=== PATIENT | female | born 1955 | race Caucasian/White ===

== ENCOUNTER 2020-02-17 07:36 | Day surgery (SDC) | payer OTHER ==
[2020-02-16 15:04] LABS: Absolute Lymphocytes (CBC) 1.8 K/uL (0.7-4.9); Basophils % 0.4 % (0-1.3); Hematocrit 30.4 % (36.0-45.0); Lymphocytes % 25.8 % (15.3-44.8); RBC Red Blood Cell Count 3.61 M/uL (3.86-4.86)
--- OUTSIDE RECORDS SUMMARY | 2020-02-17 07:40 | XMS REPORT ---
:1955 [facility] Matthew Marquez. [address] [place] [address] Care Team Providers Name Role Phone DR WERO HERNANDEZ Unavailable Unavailable Problems This patient has no known problems. Allergies, Adverse Reactions, Alerts This patient has no known allergies or adverse reactions. Medications This patient has no known medications. Encounters Start End Encounter Admission Attending Care Care Encounter Date/Time Date/Time Type Type Clinicians Facility Department ID 2020-01-17 Inpatient KUSUM MONTES RAD [id number] 08:15:00 WERO 2020-01-11 2020-02-11 Outpatient KUSUM MONTES LAB [id number] 10:56:00 23:59:00 [facility] Results Test Description Test Time Test Comments Text Results Atomic Results Result Comments VITAMIN D TOTAL 25 (OH) 2020-01-12 17:44:00 Test Item Value Reference Range Comments VITAMIN D 25(OH) (test code=VD) 13.2 ng/mL 30.0-100.0 [id number] 16:38:00 Test Item Value Reference Range Comments HIV-1,2 and p24 (test code=CHIV) NON-REACTIVE NON-REACTIVE HEPATITIS C [id number] 16:34:00 Test Item Value Reference Range Comments HCAB (test code=HCAB) NON-REACTIVE NON-REACTIVE HEPATITIS B SURFACE [id number] 16:05:00 Test Item Value Reference Range Comments HBSAG (test code=HBSAG) NON-REACTIVE NON-REACTIVE HEPATITIS A IGM [id number] 07:13:00 Test Item Value Reference Range Comments HEPATITIS A IGM (test NON-REACTIVE NON-REACTIVE For additional information, vquz=[id number]) please refer tohttp://education.[employer]/faq/UJP180(This link is being provided for informational/educational purposes only.)TEST PERFORMED AT:[employer] [id number] [place] [address]SPUCHQNOLVIA IRBY MD HEPATITIS B CORE IgM [id number] 07:12:00 Test Item Value Reference Range Comments HEPATITIS B CORE ANTIBODY NON-REACTIVE NON-REACTIVE TEST PERFORMED AT:[employer] (IGM) (test [id number]) DIAGNOSTICS [id number] [place] [address]UGPMIRNOLVIA IRBY MD COMPREHENSIVE METABOLIC [id number] 12:32:00 Test Item Value Reference Range Comments GLUCOSE (test code=06D) 55 mg/dL 75-100 SODIUM (test code=01A) 140 mmol/L 136-145 POTASSIUM (test code=01B) 4.2 mmol/L 3.6-5.1 CHLORIDE (test code=04A) 109 mmol/L 98-107 CO2 (test code=02A) 26 mmol/L 22-32 ANION GAP (test code=ANG) 9.2 mmol/L BUN (test code=05D) 10 mg/dL 7-18 CREATININE (test code=03E) 1.0 mg/dL 0.4-1.1 BUN/CREA (test code=BCR) 10 12-20 CALCIUM (test code=09D) 9.5 mg/dL 8.3-9.5 BILI TOTAL (test code=11A) 0.3 mg/dL 0.2-1.0 PROTEIN (test code=07D) 7.9 g/dL 6.4-8.2 ALBUMIN (test code=08D) 3.4 g/dL 3.5-4.8 GLOBULIN (test code=GLB) 4.5 g/dL 1.5-3.8 ALB/GLOB (test code=AGRR) 0.8 1.0-2.6 ALK PHOS (test code=35A) 66 IU/L 42-121 AST (test code=30A) 19 IU/L <=42 ALT (test code=31A) 15 IU/L <=78 CARCINOEMBRYONIC [id number] 12:06:00 Test Item Value Reference Range Comments CEA (test code=CEA) 16.7 ng/mL 0.0-3.0 CBC (INCLUDES AUTOMATED DIFFERENTIAL)2020-01-11 11:35:00 Test Item Value Reference Range Comments WBC (test code=WBC) 9.3 10\S\3/uL 4.5-11.0 RBC (test code=RBC) 4.03 10\S\6/uL 4.20-5.60 HGB (test code=HBG) 11.0 g/dL 12.0-15.5 HCT (test code=HCT) 35.1 % 35.0-44.0 MCV (test code=MCV) 87.1 fL 81.0-99.0 MCH (test code=MCH) 27.3 pg 27.0-31.0 MCHC (test code=MCHC) 31.3 g/dL 32.0-36.0 RDW (test code=RDW) 14.4 % 11.5-14.5 PLT (test code=PLT) 230 10\S\3/uL 130-400 MPV (test code=MPV) 10.4 fL 9.4-12.4 NEUTROP # (test code=NE#) 6.0 10\S\3/uL 1.6-8.0 LYMPH # (test code=LY#) 2.6 10\S\3/uL 1.1-3.5 MONOCYTE # (test code=MO#) 0.7 10\S\3/uL 0.0-1.1 EOSINOPH # (test code=EO#) 0.0 10\S\3/uL 0.0-0.7 BASOPHIL # (test code=BA#) 0.0 10\S\3/uL 0.0-0.3 IG # (test code=IG#) 0.04 10\S\3/uL 0.00-0.06 NRBC # (test code=NRBC#) 0.00 10\S\3/uL 0.00-0.01 NEUTROPH % (test code=NE%) 64.3 % 35.0-73.0 LYMPH % (test code=LY%) 28.1 % 20.0-55.0 MONO % (test code=MO%) 7.0 % 2.5-10.0 EOSINOPH % (test code=EO%) 0.0 % 0.0-5.0 BASOPHIL % (test code=BA%) 0.2 % 0.0-2.0 IG % (test code=IG%) 0.4 % 0.0-0.8 NRBC% (test code=NRBC%) 0.0 % 0.0-0.2 MANDIFF (test code=MDIFF) NO NO RBC MORPH (test code=RBCMOR) NORMAL
[2020-02-17] MEDS ORDERED: NS 0.9% VIAL 20 ML ONE (08:14)
[2020-02-17] MEDS ORDERED: LIDOCAINE 1% MPF 30 ML VIAL ONE (08:14)
[2020-02-17] MEDS ORDERED: HEPARIN 5000 UNIT/ML 1 ML VIAL ONE (08:14)
[2020-02-17] MEDS ORDERED: NA CHLORIDE 0.9% 1,000 ML ONE (08:40)
[2020-02-17] MEDS ORDERED: CEFAZOLIN/SWI 1gm 1 GM/10 ML SYR ONE (08:40)
[2020-02-17] MEDS ORDERED: propofoL 200 MG/20 ML VIAL IV ONE (08:56)
[2020-02-17] MEDS ORDERED: MIDAZOLAM HCL 2 MG/2 ML INJ ONE (08:56)
[2020-02-17] MEDS ORDERED: FENTANYL CITR 100 MCG/2 ML ONE (08:56)
--- NOTE | 2020-02-17 10:19 | RAD REPORT ---
EXAM DESCRIPTION: RAD - Chest Single View - 02/17/2020 10:09 am CLINICAL HISTORY: s/p port a cath Chest pain. COMPARISON: No comparisons FINDINGS: Portable technique limits examination quality. The lungs are grossly clear. The heart is normal in size. Right-sided venous catheter has its tip in the SVC. No pneumothorax. IMPRESSION: No postprocedure pneumothorax.
[2020-02-17] MEDS ORDERED: HYDROCODONE/APAP 7.5/325 MG TAB ONE (10:42)
--- NOTE | 2020-02-17 12:16 | RAD REPORT ---
EXAM DESCRIPTION: RAD - Fluoroscopy <1 Hour - 02/17/2020 12:09 pm CLINICAL HISTORY: Venous catheter insertion. PORT A CATH COMPARISON: No comparisons FINDINGS: Fluoroscopic imaging is submitted from placement of a venous catheter. Details of the pro cedure not available. Fluoroscopy time: 0.3 minutes
[2020-02-17 12:50] VITALS: BP 93/45; TEMP 96.8; O2SAT 100
--- NOTE | 2020-02-17 14:31 | OP ---
Date of Procedure: 02/17/2020 Surgeon: Jourdan Mercado MD Preoperative Diagnosis: Anal carcinoma. Postoperative Diagnosis: Anal carcinoma. Procedure: Placement of right internal jugular Port-A-Cath and interpretation of intraoperative fluo roscopy. Estimated Blood Loss: Minimal. Specimen: None. Findings: Normal anatomy. Anesthesia: MAC. Complications: None. Disposition: Patient tolerated the procedure in stable condition, taken to Recovery in good general condition. Procedure In Detail: Patient was brought to the OR, placed in supine position. MAC anesthesia was b egun. The patient was prepped and draped in usual sterile fashion. Lidocaine 1% infiltrated locally . An 18-gauge needle was used to access the right IJ vein. Guidewire was passed. Position was conf irmed with fluoroscopy. A 3 cm incision made on the right anterior chest. Pocket was created. Tunn Improveit! 360 device was used to tunnel the catheter between the 2 wounds. Bleeding controlled with cautery and then catheter tip placed under fluoroscopy at the SVC right atrial junction and cut to appropriat e size, attached to the Port-A-Cath device. Port-A-Cath device attached to subcu tissue with 3-0 Victoriano ryl. Port-A-Cath device flushed with heparin and packed with heparin with good blood flow and then 3 -0 chromic used to reapproximate subcutaneous tissue and close the skin. Sterile dressing applied. Patient was awakened and taken to Recovery in good general condition. Chest x-ray has been ordered. If okay, the patient will be discharged to home. Disposition: Home. Condition: Stable. Discharge Instructions: Resume home medications and diet. Activity as tolerated. No heavy lifting. Remove outer dressing in 2 days. Shower. Keep wound clean and dry. Follow up in my office in 2 w [facility], call for appointment. [facility] and then Tylenol No. 3 one tablet p.o. q.4 p.r.n. pain. /MODL Voice ID: [id number] Report ID: [id number]
== END 2020-02-17 11:30 | disposition home or self-care (01) ==
LOC: OR 07:36
PROVIDERS: ATTEND Surgery
PROC: 0JH60WZ Insertion of Totally Implantable Vascular Access Device into Chest Subcutaneous Tissue and Fascia, Open Approach (ICD-10-PCS; principal; 2020-02-17 09:00)
DX: C21.0 Malignant neoplasm of anus, unspecified (principal); E11.9 Type 2 diabetes mellitus without complications; Z87.891 Personal history of nicotine dependence; Z80.3 Family history of malignant neoplasm of breast; Z83.3 Family history of diabetes mellitus
CPT/HCPCS: 85025; 36415; 82947 ×2; 71045; 36561; J2704; J1644 ×2; J2250; J3010; J0690; J7030; C1788; 76000

== ENCOUNTER → 2020-04-10 | Day surgery (SDC) | payer OTHER ==
[~2020-04-10] MED LIST: NA CHLORIDE 0.9% 250 ML ONE
--- OUTSIDE RECORDS SUMMARY | 2020-04-10 14:45 | XMS REPORT | Continuity of Care Document ---
:1955 Author Organization [facility] Care Team Providers Name Role Phone MD Lupe, Laury Unavailable Unavailable Insurance Providers Payer name Policy type / Policy ID Covered democrat ID Policy Hol brigid Coverage type *SELF PAY* *SELF PAY* UHC - MEDICARE SOLUTIONS - MEDICARE DIRECT A *SELF PAY* UHC - MEDICARE SOLUTIONS - MEDICARE DIRECT A *SELF PAY* *SELF PAY* [place]AL[place] MEDICARE [place] *SELF PAY* *SELF PAY* *SELF PAY* *SELF PAY* *SELF PAY* *SELF PAY* *SELF PAY* *SELF PAY* *SELF PAY* *SELF PAY* *SELF PAY* *SELF PAY* *SELF PAY* *SELF PAY* *SELF PAY* *SELF PAY* *SELF PAY* *SELF PAY* *SELF PAY* *SELF PAY* *SELF PAY* *SELF PAY* *SELF PAY* *SELF PAY* *SELF PAY* *SELF PAY* *SELF PAY* *SELF PAY* *SELF PAY* *SELF PAY* *SELF PAY* *SELF PAY* *SELF PAY* *SELF PAY* *SELF PAY* *SELF PAY* *SELF PAY* *SELF PAY* *SELF PAY* Encounters Encounter Performer Location Date Lab Report Laury Andrade MD [facility] Aug 28, 2014 Internal Medicine Problems Problem Effective Dates Problem Status DIABETES MELLITUS, TYPE II, WITH NEUROLOGICAL Active COMPLICATIONS HYPERCHOLESTEROLEMIA Active SHORTNESS OF BREATH Aug 30, 2013 Inactive EDEMA Aug 30, 2013 Active URINARY TRACT INFECTION Sep 02, 2013 Inactive ACUTE SINUSITIS, UNSPECIFIED Sep 02, 2013 Inactive ECZEMA, ATOPIC Sep 27, 2013 Inactive NEED PROPHYLACTIC VACCINATION&INOCULATION FLU Sep 27, 2013 Inactive SCABIES Jan 18, 2014 Inactive ELEVATED BLOOD PRESSURE Mar 27, 2014 Active PERIPHERAL NEUROPATHY Mar 27, 2014 Active FOOT PAIN April 20, 2014 Inactive DIARRHEA April 20, 2014 Inactive METATARSALGIA May 05, 2014 Active PLANTAR FASCIITIS May 19, 2014 Active ACHILLES BURSITIS OR TENDINITIS May 19, 2014 Active DRY SKIN Aug 28, 2014 Active OVERACTIVE BLADDER Aug 28, 2014 Active Procedures Date Description Comments Aug 30, 2013 smoking status former smoker Apr 30, 2012 colonoscopy Normal Apr 30, 2012 mammogram Normal Bilateral Dec 26, 2013 diabetic foot check yes May 05, 2014 diabetic foot check Exam Performed Today May 19, 2014 smoking status Former smoker Jun 08, 2014 mammogram Normal Aug 28, 2014 smoking status Former smoker Medications Medication Instructions Start Date Status METFORMIN HCL 1000 MG TABS 1 po BID Aug 30, 2013 Activ e SIMVASTATIN 40 MG TABS 1 po daily Aug 30, 2013 Active HYDROCODONE-ACETAMINOPHEN 5-325 1 po BID PRN pain Aug 30, 2013 Active MG TABS GLIPIZIDE 10 MG TABS 1 po TID Aug 30, 2013 Active METOLAZONE 2.5 MG TABS take one pill 30 minutes prior Aug 30 13 Inactive to Lasix twice a day LEVAQUIN 500 MG TABS one po daily Sep 02, 2013 Inactive FUROSEMIDE 40 MG TABS one po daily PRN Dec 26, 2013 Active KLOR-CON 10 TAB 10MEQ ER one po daily As needed with Dec 26 4 Active Lasix METOLAZONE 2.5 MG TABS 1 po BID 30 minutes prior to Oct 24, 2013 Inactive furosemide TRAMADOL HCL 50 MG TABS 1 po BID PRN Pain Dec 26, 2013 Active PERMETHRIN 5 % CREA Apply cream from head to toe; Jan 18, 2014 Inactive leave on for 8-14 hours before washing off with water; reapply in 1 week LYRICA 75 MG CAPS one po twice daily Mar 27, 2014 Active TRIAMCINOLONE ACETONIDE 0.1 % use BID to affected area Dec 26 014 Inactive CREA VESICARE 5 MG TABS 1 tablet daily Aug 28, 2014 Active TRIAMCINOLONE ACETONIDE 0.1 % Apply to affected areas twice a Se 2013 Active CREA day Immunizations Vaccine Date Status pneumococcal immunization administered Sep 27, 2013 c ompleted influenza immunization (Flu Vax) has been administered Aug 312012 completed influenza immunization (Flu Vax) has been administered Aug 012013 completed Vital Signs Date Description Test Result Aug 30, 2013 height E&M - 8302-2 HEIGHT 65.25 in Aug 30, 2013 weight E&M - 3141-9 WEIGHT 301 lb Aug 30, 2013 temperature E&M TEMPERATURE 98.4 deg f Aug 30, 2013 pulse rate E&M - 8867-4 PULSE RATE 80 /min Aug 30, 2013 blood pressure, systolic - 8480-6 BP SYSTOLIC 130 mm Hg Aug 30, 2013 blood pressure, diastolic - 8462-4 BP DIASTOLIC 88 mm Hg Sep 02, 2013 weight E&M - 3141-9 WEIGHT 287 lb Sep 02, 2013 temperature E&M TEMPERATURE 98.2 deg f Sep 02, 2013 pulse rate E&M - 8867-4 PULSE RATE 96 /min Sep 02, 2013 blood pressure, systolic - 8480-6 BP SYSTOLIC 124 mm Hg Sep 02, 2013 blood pressure, diastolic - 8462-4 BP DIASTOLIC 84 mm Hg Sep 27, 2013 weight E&M - 3141-9 WEIGHT 296 lb Sep 27, 2013 blood pressure, systolic - 8480-6 BP SYSTOLIC 120 mm Hg Sep 27, 2013 blood pressure, diastolic - 8462-4 BP DIASTOLIC 80 mm Hg Sep 27, 2013 pulse rate E&M - 8867-4 PULSE RATE 80 /min Sep 27, 2013 temperature E&M TEMPERATURE 98.0 deg f Dec 26, 2013 weight E&M - 3141-9 WEIGHT 278 lb Dec 26, 2013 blood pressure, systolic - 8480-6 BP SYSTOLIC 140 mm Hg Dec 26, 2013 blood pressure, diastolic - 8462-4 BP DIASTOLIC 94 mm Hg Dec 26, 2013 temperature E&M TEMPERATURE 98.1 deg f Dec 26, 2013 pulse rate E&M - 8867-4 PULSE RATE 84 /min Jan 18, 2014 weight E&M - 3141-9 WEIGHT 275 lb Jan 18, 2014 blood pressure, systolic - 8480-6 BP SYSTOLIC 160 mm Hg Jan 18, 2014 blood pressure, diastolic - 8462-4 BP DIASTOLIC 92 mm Hg Jan 18, 2014 temperature E&M TEMPERATURE 97.9 deg f Jan 18, 2014 pulse rate E&M - 8867-4 PULSE RATE 76 /min Mar 27, 2014 weight E&M - 3141-9 WEIGHT 273 lb Mar 27, 2014 blood pressure, systolic - 8480-6 BP SYSTOLIC 140 mm Hg Mar 27, 2014 blood pressure, diastolic - 8462-4 BP DIASTOLIC 88 mm Hg Mar 27, 2014 temperature E&M TEMPERATURE 97.5 deg f Mar 27, 2014 pulse rate E&M - 8867-4 PULSE RATE 68 /min April 20, 2014 weight E&M - 3141-9 WEIGHT 274.4 lb April 20, 2014 temperature E&M TEMPERATURE 97.7 deg f April 20, 2014 pulse rate E&M - 8867-4 PULSE RATE 72 /min April 20, 2014 blood pressure, systolic - 8480-6 BP SYSTOLIC 128 mm Hg April 20, 2014 blood pressure, diastolic - 8462-4 BP DIASTOLIC 80 mm Hg May 05, 2014 temperature E&M TEMPERATURE 97.8 deg f May 19, 2014 temperature E&M TEMPERATURE 97.8 deg f May 19, 2014 weight E&M - 3141-9 WEIGHT 274 lb May 19, 2014 blood pressure, systolic - 8480-6 BP SYSTOLIC 130 mm Hg May 19, 2014 blood pressure, diastolic - 8462-4 BP DIASTOLIC 80 mm Hg Jun 19, 2014 temperature E&M TEMPERATURE 97.4 deg f Jun 19, 2014 weight E&M - 3141-9 WEIGHT 274 lb Jun 19, 2014 blood pressure, systolic - 8480-6 BP SYSTOLIC 130 mm Hg Jun 19, 2014 blood pressure, diastolic - 8462-4 BP DIASTOLIC 78 mm Hg Aug 28, 2014 weight E&M - 3141-9 WEIGHT 275 lb Aug 28, 2014 temperature E&M TEMPERATURE 97.6 deg f Aug 28, 2014 pulse rate E&M - 8867-4 PULSE RATE 76 /min Aug 28, 2014 blood pressure, systolic - 8480-6 BP SYSTOLIC 132 mm Hg Aug 28, 2014 blood pressure, diastolic - 8462-4 BP DIASTOLIC 90 mm Hg Results Date Description Test Name Value Reference Interpretation Sta tus Mar 27, sodium, serum SODIUM 141 mmol/L [phone] Mar 27, potassium, serum POTASSIUM 3.9 mmol/L 3.3-5.0 2013Mar 27, albumin, serum ALBUMIN 3.5 g/dL 3.5-5.0 2013Mar 27, calcium, serum CALCIUM 9.0 mg/dL 8.8-10.0 2013Mar 27, creatinine, serum CREATININE 0.64 mg/dL 0.46-1.20 2013Mar 27, urea nitrogen, blood BUN 8 mg/dL 8-20 2013Mar 27, alkaline phosphatase, ALK PHOS 54 U/L 26-102 2013 serum Mar 27, aspartate SGOT (AST) 20 U/L 10-42 2013 aminotransferase (SGOT), serum Mar 27, alanine SGPT (ALT) 15 U/L 11-43 2013 aminotransferase (SGPT), serum Mar 27, hemoglobin A1C, blood, HGBA1C 6.0 % 3.0-6.0 2013 as % of total hemoglobin
--- OUTSIDE RECORDS SUMMARY | 2020-04-10 14:45 | XMS REPORT | Continuity of Care Document ---
:1955 Author Organization [facility] Care Team Providers Name Role Phone MD Lupe, Laury Unavailable Unavailable Insurance Providers Payer name Policy type / Policy ID Covered libertarian ID Policy Hol brigid Coverage type *SELF [...] Location Date Lab Report Laury Andrade MD [facility] Aug 28, 2014 Internal Medicine Problems [...] Mar 27, sodium, serum SODIUM 141 mmol/L [phone] Mar 27, potassium, serum POTASSIUM 3.9 mmol/L [...] 3.0-6.0 2013 as % of total hemoglobin Aug 28, sodium, serum SODIUM 143 mmol/L 136-142 High 2013Aug 28, potassium, serum POTASSIUM 4.2 mmol/L 3.3-5.0 2013Aug 28, albumin, serum ALBUMIN 3.7 g/dL 3.5-5.0 2013Aug 28, calcium, serum CALCIUM 9.3 mg/dL 8.8-10.0 2013Aug 28, creatinine, serum CREATININE 0.69 mg/dL 0.46-1.20 2013Aug 28, urea nitrogen, blood BUN 9 mg/dL 8-20 2013Aug 28, alkaline phosphatase, ALK PHOS 61 U/L 26-102 2013 serum Aug 28, aspartate SGOT (AST) 18 U/L 10-42 2013 aminotransferase (SGOT), serum Aug 28, alanine SGPT (ALT) 13 U/L 43 2013 aminotransferase (SGPT), serum Aug 28, hemoglobin A1C, blood, HGBA1C 6.0 % 3.0-6.0 2013 as % of total hemoglobin
--- OUTSIDE RECORDS SUMMARY | 2020-04-10 14:45 | XMS REPORT | Continuity of Care Document ---
:1955 Author Organization [employer] Care Team Providers Name Role Phone [employer] Unavailable Un available Problems Problem Status Onset Classification Date Comments Sourc e Date Reported R10.32 - LEFT LOWER Active OPID QUADRANT PAIN 016 [place] HYPERTENSION Active Condition 07/19/2015 015 Medical Group OBESITY Active Condition 07/19/2015 014 Medical Group OTITIS MEDIA Inactive Condition 07/19/2015 014 Medical Group LOWER BACK PAIN Active Condition 07/19/2015 014 Medical Group Chronic low back pain Active Problem 01/01/2020 Data MH (disorder) 014 migrated Medical from [facility], [facility] OPID on 04/28/15. [place] Obesity (disorder) Active Problem 08/01/2016 Data OPID 014 migrated Sugar from [facility] [employer] on 04/28/15. Otitis media Resolved Problem 08/01/2016 Data migrate d from [facility] on 06/16/15. OPID (disorder) 014 Data migrated from [facility] on 06/15/15. [place] DRY SKIN Active Condition 07/19/2015 014 Medical Group OVERACTIVE BLADDER Active Condition 07/19/2015 014 Medical Group Bladder muscle Active Problem 01/01/2020 Data dysfunction - 014 migrated Medica l overactive (disorder) from [facility], [facility] OPID on 04/28/15. [place] Dry skin (finding) Active Problem 08/01/2016 Data OPID 014 migrated [facility] from [facility] [employer] on 04/28/15. PLANTAR FASCIITIS Active Condition 07/19/2015 M H 014 Medical Group ACHILLES BURSITIS OR Active Condition 07/19/2015 TENDINITIS 014 Medical Group Achilles tendinitis Active Problem 08/01/2016 Data OPID (disorder) 014 migrated [facility] from [employer] [facility] on 04/28/15. Plantar fasciitis Active Problem 08/01/2016 Data M H OPID (disorder) 014 migrated [facility] from [employer] [facility] on 04/28/15. METATARSALGIA Active Condition 07/19/2015 014 Medical Group Metatarsalgia Active Problem 08/01/2016 Data OP ID (finding) 014 migrated [facility] from [employer] [facility] on 04/28/15. FOOT PAIN Inactive Condition 07/19/2015 014 Medical Group DIARRHEA Inactive Condition 07/19/2015 014 Medical Group ELEVATED BLOOD Active Condition 07/19/2015 PRESSURE 014 Medical Group PERIPHERAL NEUROPATHY Active Condition 07/19/2015 014 Medical Group Diabetic peripheral Active Problem 01/01/2020 Data neuropathy (disorder) 014 migrated Medical from [facility], [facility] OPID on 04/28/15. [place] SCABIES Inactive Condition 07/19/2015 014 Medical Group ECZEMA, ATOPIC Inactive Condition 07/19/2015 013 Medical Group NEED PROPHYLACTIC Inactive Condition 07/19/2015 M H VACCINATION&INOCULATIO 013 Medical N FLU Group URINARY TRACT Inactive Condition 07/19/2015 INFECTION 013 Medical Group ACUTE SINUSITIS, Inactive Condition 07/19/2015 UNSPECIFIED 013 Medical Group Acute sinusitis Resolved Problem 08/01/2016 [facility]. OPID (disorder) 013 [facility]. [place] Urinary tract Resolved Problem 08/01/2016 [facility]. OPID infectious disease 013 [facility]. Sugar (disorder) Land SHORTNESS OF BREATH Inactive Condition 07/19/2015 013 Medical Group EDEMA Active Condition 07/19/2015 013 Medical Group Edema (finding) Active Problem 08/01/2016 Data OPID 013 migrated [facility] from [facility] on 04/28/15. 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 Medications Medication Details Route Status Patient Ordering Order Source Instructions Provider Date simvastatin 40 = 1 tab, PO, Active MH mg oral tablet Daily, # 90 019 Medic al ea, Refill(s) Group 3, Pharmacy: [facility] Metformin = 1 tab, PO, Active MH hydrochloride BID, # 60 ea, 019 Medi nicholas 1000 MG Oral 0 Refill(s), Group Tablet Pharmacy: [facility] 3 ML insulin 24 unit, Active detemir 100 SUB-Q, BID, # 018 Medica l UNT/ML Prefilled 45 mL, 1 Group Syringe Refill(s), [Levemir] Pharmacy: [facility] 3 ML insulin 15 unit, Active detemir 100 SUB-Q, Daily, 018 Medica l UNT/ML Prefilled increase by 2 G roup Syringe units every 2 [Levemir] days until fasting glucose 100-130, # 15 mL, 5 Refill(s), Pharmacy: [facility] DULoxetine 60 mg 60 mg = 1 cap, Active MH oral delayed PO, Daily, # 018 Medica l release capsule 90 cap, 1 Group Refill(s), Pharmacy: [facility] simvastatin 40 See Active MH mg oral tablet Instructions, 018 Med ical # 90 ea, Group Refill(s) 3, TAKE ONE (1) TABLET(S) BY MOUTH ONCE A DAY., Pharmacy: [facility] gabapentin 300 See Active MH MG Oral Capsule Instructions, 018 Me dical # 90 ea, Group Refill(s) 5, TAKE ONE (1) CAPSULE(S) BY MOUTH THREE TIMES A DAY., Pharmacy: [facility] tramadol 50 mg = 1 tab, Active MH hydrochloride 50 PO, BID, PRN 017 Me dical MG Oral Tablet pain, [facility], # 180 tab, 1 Refill(s) gabapentin 300 See Active MH MG Oral Capsule Instructions, 017 Me dical # 90 ea, TAKE Group ONE (1) CAPSULE(S) BY MOUTH THREE TIMES A DAY., Pharmacy: [facility] VICTOZA 18 1.2 mg Active MH MG/3ML SOLN Subcutanous 015 Medical daily Group NOVOTWIST 32G X Use as Active MH 5 MM MISC directed daily 015 Medical Group METANX one by mouth Active MH 3-90.314-2-35 MG twice daily 015 Med ical CAPS Group TYLENOL WITH One po prn Active CODEINE #3 015 Medical 300-30 MG TABS Group CIPRODEX 0.3-0.1 prn No MH % SUSP Longer 014 Medical Active Group AUGMENTIN one by mouth No MH 875-125 MG TABS twice daily Longer 014 Medi nicholas with food Active Group CIPRODEX 0.3-0.1 prn No MH % SUSP Longer 014 Medical Active Group VESICARE 5 MG 1 tablet daily No MH TABS Longer 014 Medical Active Group TRIAMCINOLONE Apply to No MH ACETONIDE 0.1 % affected areas Longer 014 M edical CREA twice a day Active Group VESICARE 5 MG 1 tablet daily No MH TABS Longer 014 Medical Active Group LYRICA 75 MG one po twice Active MH CAPS daily 014 Medical Group LYRICA 75 MG one po twice Active MH CAPS daily 014 Medical Group LYRICA 75 MG takes 2 Active MH CAPS capsules twice 014 Medical daily Group PERMETHRIN 5 % Apply cream No MH CREA from head to Longer 014 Medical toe; leave on Active Group for 8-14 hours before washing off with water; reapply in 1 week FUROSEMIDE 40 MG one po daily Active MH TABS PRN 014 Medical Group KLOR-CON 10 TAB one po daily Active MH 10MEQ ER As needed with 014 Medical Lasix Group TRAMADOL HCL 50 1 po BID PRN Active MH MG TABS Pain 014 Medical Group TRIAMCINOLONE use BID to No MH ACETONIDE 0.1 % affected area Longer 014 Me dical CREA Active Group FUROSEMIDE 40 MG one po daily Active MH TABS PRN 014 Medical Group KLOR-CON 10 TAB one po daily Active MH 10MEQ ER As needed with 014 Medical Lasix Group TRAMADOL HCL 50 1 po BID PRN Active MH MG TABS Pain 014 Medical Group TRAMADOL HCL 50 1 po BID PRN Active MH MG TABS Pain 014 Medical Group FUROSEMIDE 40 MG one po daily Active MH TABS PRN 014 Medical Group KLOR-CON 10 TAB one po daily Active MH 10MEQ ER As needed with 014 Medical Lasix Group TRAMADOL HCL 50 1 po BID PRN Active MH MG TABS Pain 014 Medical Group METOLAZONE 2.5 1 po BID 30 No MH MG TABS minutes prior Longer 013 Medical to furosemide Active Group METOLAZONE 2.5 1 po BID 30 No MH MG TABS minutes prior Longer 013 Medical to furosemide Active Group LEVAQUIN 500 MG one po daily No MH TABS Longer 013 Medical Active Group LEVAQUIN 500 MG one po daily No MH TABS Longer 013 Medical Active Group METFORMIN HCL 1 po BID Active MH 1000 MG TABS 013 Medical Group SIMVASTATIN 40 1 po daily Active MH MG TABS 013 Medical Group HYDROCODONE-ACET 1 po BID PRN Active MH AMINOPHEN 5-325 pain 013 Medical MG TABS Group GLIPIZIDE 10 MG 1 po TID Active MH TABS 013 Medical Group METOLAZONE 2.5 take one pill No MH MG TABS 30 minutes Longer 013 Medical prior to Lasix Active Group twice a day SIMVASTATIN 40 1 po daily Active MH MG TABS 013 Medical Group HYDROCODONE-ACET 1 po BID PRN No MH AMINOPHEN 5-325 pain Longer 013 Medical MG TABS Active Group GLIPIZIDE 10 MG one by mouth Active MH TABS twice daily 013 Medical with food Group METFORMIN HCL 1 po BID Active MH 1000 MG TABS 013 Medical Group METOLAZONE 2.5 take one pill No MH MG TABS 30 minutes Longer 013 Medical prior to Lasix Active Group twice a day GLIPIZIDE 10 MG one by mouth Active MH TABS twice daily 013 Medical with food Group HYDROCODONE-ACET 1 po BID PRN No MH AMINOPHEN 5-325 pain Longer 013 Medical MG TABS Active Group Allergies, Adverse Reactions, Alerts Substance Category Reaction Severity Reaction Status Date Comments S ource type Reported No Known Assertion Drug MH Medication allergy Medic al Allergies Group Immunizations Immunization Date Site Status Last Comments Source Given Updated influenza virus Left completed Abner Result Comment : Medical vaccine, 5 Deltoid NDC# Group inactivated<sup> [id number] 1</sup> influenza virus Left completed Abner Result Comment : OPID vaccine, 5 Deltoid NDC# [place] inactivated<sup> [id number] 2</sup> influenza completed Medical immunization 4 Group (Flu Vax) has been administered Hx influenza Left completed GE Result Comment: M H Medical vaccine-unspecif 4 Deltoid fluzone Brady up ied<sup>3</sup> (quadrivalent) no preservative (>3 yrs.) [[id number]]. Migrated from OBS ; Data migrated from [employer] on 01/02/2016. Hx influenza Left completed GE Result Comment: M H OPID vaccine-unspecif 4 Deltoid fluzone [place] ied<sup>1</sup> (quadrivalent) no preservative (>3 yrs.) [[id number]]. Migrated from OBS ; Data migrated from [employer] on 01/02/2016. influenza completed Medical immunization 3 Group (Flu Vax) has been administered pneumococcal completed [facility] nicholas immunization 3 Group administered pneumococcal Right completed GE Result Comment: M H Medical 23-valent 3 Deltoid pneumovax 23 Group,M H vaccine<sup>4</s [[id number]]. OPI D Sugar up> Migrated from Land OBS VIS: Pneumovax 23: ; Data migrated from [facility] [employer] on 01/02/2016. influenza virus Left completed GE Result Comment : Medical vaccine, 3 Deltoid fluzone (>3 Group inactivated<sup> yrs.) [[id number] ]. 2</sup> Migrated from OBS ; Data migrated from [employer] on 01/02/2016. influenza virus Left completed GE Result Comment : OPID vaccine, 3 Deltoid fluzone (>[address] [place] [address] inactivated<sup> yrs.) [[id number] ]. 3</sup> Migrated from OBS ; Data migrated from [employer] on 01/02/2016. Results Order Name Results Value Reference Date Interpretation Comments Nely rce Range Chemistry HGBA1C 6.9 - 5.6 2014 Medical Group Chemistry SODIUM 143 135 - 145 MEQ/L 2014 Medical Group Chemistry POTASSIUM 3.9 3.5 - 5.1 MEQ/L 2014 Medical Group Chemistry CREATININE 0.8 0.5 - 1.4 2014 Medical Group Chemistry BUN 11 7 - 22 2014 Medical Group Chemistry BUN/CREAT 14 6 - 25 2014 Medical Group Chemistry ALBUMIN 3.4 3.5 - 5.0 2014 Medical Group Chemistry CALCIUM 8.5 8.5 - 10.5 2014 Medical Group Chemistry SGPT (ALT) 19 0 - 65 2014 Medical Group Chemistry SGOT (AST) 18 0 - 37 2014 Medical Group Chemistry ALK PHOS 73 39 - 136 2014 Medical Group Chemistry SODIUM 140 136 - 142 2014 Medical Group Chemistry POTASSIUM 4.3 3.3 - 5.0 2014 Medical Group Chemistry ALBUMIN 3.6 3.5 - 5.0 2014 Medical Group Chemistry CALCIUM 8.8 8.8 - 10.0 2014 Medical Group Chemistry CREATININE 0.67 0.46 - 1.20 2014 Medical Group Chemistry BUN 7 8 - 20 2014 Medical Group Chemistry ALK PHOS 53 26 - 102 2014 Medical Group Chemistry SGOT (AST) 19 10 - 42 2014 Medical Group Chemistry SGPT (ALT) 14 11 - 43 2014 Medical Group Chemistry CHOLESTEROL 117 120 - 200 2014 Medical Group Chemistry HDL 36 31 - 79 2014 Medical Group Chemistry LDL 48 0 - 130 2014 Medical Group Chemistry HGBA1C 5.9 3.0 - 6.0 2014 Medical Group Chemistry SODIUM 142 136 - 142 2013 Medical Group Chemistry POTASSIUM 4.1 3.3 - 5.0 2013 Medical Group Chemistry ALBUMIN 3.5 3.5 - 5.0 2013 Medical Group Chemistry CALCIUM 8.9 8.8 - 10.0 2013 Medical Group Chemistry CREATININE 0.70 0.46 - 1.20 2013 Medical Group Chemistry BUN 9 8 - 20 2013 Medical Group Chemistry ALK PHOS 57 26 - 102 2013 Medical Group Chemistry SGOT (AST) 15 10 - 2013 Medical Group Chemistry SGPT (ALT) 12 - 2013 Medical Group Chemistry HGBA1C 6.5 3.0 - 6.0 2013 Medical Group Chemistry SODIUM 143 136 - 142 2013 Medical Group Chemistry POTASSIUM 4.2 3.3 - 5.0 2013 Medical Group Chemistry ALBUMIN 3.7 3.5 - 5.0 2013 Medical Group Chemistry CALCIUM 9.3 8.8 - 10.0 2013 Medical Group Chemistry CREATININE 0.69 0.46 - 1.20 2013 Medical Group Chemistry BUN 9 8 - 20 2013 Medical Group Chemistry ALK PHOS 61 26 - 102 2013 Medical Group Chemistry SGOT (AST) 18 10 - 42 2013 Medical Group Chemistry SGPT (ALT) 13 - 2013 Medical Group Chemistry HGBA1C 6.0 3.0 - 6.0 2013 Medical Group Chemistry SODIUM 141 136 - 142 2013 Medical Group Chemistry POTASSIUM 3.9 3.3 - 5.0 2013 Medical Group Chemistry ALBUMIN 3.5 3.5 - 5.0 2013 Medical Group Chemistry CALCIUM 9.0 8.8 - 10.0 2013 Medical Group Chemistry CREATININE 0.64 0.46 - 1.20 2013 Medical Group Chemistry BUN 8 8 - 20 2013 Medical Group Chemistry ALK PHOS 54 26 - 102 2013 Medical Group Chemistry SGOT (AST) 20 10 - 42 2013 Medical Group Chemistry SGPT (ALT) 15 11 - 43 2013 Medical Group Chemistry HGBA1C 6.0 3.0 - 6.0 2013 Medical Group Pathology Reports No Data Provided for This Section Diagnostic Reports Report Value Date Source Wrist 2 views DX Clinical Indication: - pain x 3 months/no tra arturo 03/08/2018 [facility] Comparison: None FINDINGS: The PA and lateral views of the right wr ist show no fractures or dislocations. Normal bony alignment. There are no radio-opaque foreign bodies. If there is further concern, followup radiographs or MRI of the wrist may be performed for complete assessment. IMPRESSION: 1. No acute fracture or dislocation injury of t he right wrist . SL: [id number] Abdomen/Pelvis w/wo CT OF ABDOMEN AND PELVIS WIT H AND WITHOUT IV CONTRAST, 07/29/2016 07/29/2016 OPID [place] IV contrast CT HISTORY: Left lower quadrant abdominal pain. TECHNIQUE: 5 mm pre and pos t contrast axial images were obtained from the hemidiaphragms through the symphysis pubis. Delayed images and sagittal and coronal reconstructions were performed. DLP: 3223 mGy-cm. FINDINGS: The lung bases are clear. Po ssible small calcific density near the right atrium. The liver has an irregular o utline raising the possibility of hepatocellular disease. No evidence of solid liver mass or bile duct dilatation. There is a tiny calcification in the central right lobe of liver adjacent to a small cy st. The spleen size is normal. Surgically absent gallbladder. Normal pancreas, spleen, adrenal glands, and inferior vena cava. Abdominal aortic calcifications without aneurys m. Several tiny peripelvic c ysts without evidence of solid renal mass or hydronephrosis. No evidence of ascites. No evidence of large or smal l bowel obstruction or free air. No evidence of sigmoid diverticulosis or diverticulitis. Small appendix or appendiceal stump noted. Small hiatal hernia. Absent uterus with normal ov virgilio. No evidence of abnormal adnexal mass or fluid collections. Degenerative changes noted i n the lumbar spine, bilateral hips, and bilateral sacroiliac joints.. IMPRESSION: No explanation for left lower quadrant pain dete cted. Incidental findings as described above. Consultation Notes No Data Provided for This Section Discharge Summaries No Data Provided for This Section History and Physicals No Data Provided for This Section Vital Signs Vital Sign Value Date Comments Source Weight 112.727 07/26/2018 Medical Grou p BMI Calculated 46.96 07/26/2018 Medical Gr oup Height 154.94 cm 07/26/2018 Medical Grou p Heart Rate 76 07/26/2018 Medical Grou p Temperature Oral (F) 98.0 F 07/26/2018 Medi nicholas Group Systolic (mm Hg) 140 07/26/2018 Medical Group Diastolic (mm Hg) 72 07/26/2018 Medical Group Weight 113.324 06/30/2018 Medical Grou p BMI Calculated 47.21 06/30/2018 Medical Gr oup Systolic (mm Hg) 164 06/30/2018 Medical Group Diastolic (mm Hg) 77 06/30/2018 Medical Group Heart Rate 99 06/30/2018 Medical Grou p Height 154.94 cm 06/30/2018 Medical Grou p Heart Rate 84 05/31/2018 Medical Grou p Temperature Oral (F) 98.3 F 05/31/2018 Medi nicholas Group BMI Calculated 47.15 05/31/2018 Medical Gr oup Weight 113.182 05/31/2018 MH Medical Grou p Height 154.94 cm 05/31/2018 Medical Grou p Systolic (mm Hg) 140 05/31/2018 Medical Group Diastolic (mm Hg) 70 05/31/2018 Medical Group Height 157.48 cm 03/08/2018 Medical Grou p BMI Calculated 49.49 03/08/2018 Medical Gr oup Weight 122.727 03/08/2018 Medical Grou p Systolic (mm Hg) 144 03/08/2018 Medical Group Diastolic (mm Hg) 92 03/08/2018 Medical Group Heart Rate 78 03/08/2018 Medical Grou p Temperature Oral (F) 97.6 F 03/08/2018 Medi nicholas Group Height 157.48 cm 11/09/2017 Medical Grou p Weight 121.364 11/09/2017 Medical Grou p BMI Calculated 48.94 11/09/2017 Medical Gr oup Temperature Oral (F) 98.3 F 11/09/2017 Medi nicholas Group Heart Rate 84 11/09/2017 Medical Grou p Systolic (mm Hg) 150 11/09/2017 Medical Group Diastolic (mm Hg) 90 11/09/2017 Medical Group Height 65.25 07/19/2015 Medical Grou p Weight 290.38 07/19/2015 Medical Grou p Heart Rate 84 07/19/2015 Medical Grou p Temperature Oral (F) 98.2 F 07/19/2015 Medi nicholas Group Systolic (mm Hg) 138 07/19/2015 Medical Group Diastolic (mm Hg) 72 07/19/2015 Medical Group Height 65.25 04/06/2015 Medical Grou p Weight 283 04/06/2015 Medical Grou p Temperature Oral (F) 98.6 F 04/06/2015 Medi nicholas Group Heart Rate 72 04/06/2015 Medical Grou p Systolic (mm Hg) 128 04/06/2015 Medical Group Diastolic (mm Hg) 92 04/06/2015 Medical Group Height 65.25 11/20/2014 Medical Grou p Weight 283 11/20/2014 Medical Grou p Temperature Oral (F) 97.8 F 11/20/2014 Medi nicholas Group Heart Rate 72 11/20/2014 Medical Grou p Systolic (mm Hg) 138 11/20/2014 Medical Group Diastolic (mm Hg) 86 11/20/2014 Medical Group Weight 275 08/28/2014 Medical Grou p Temperature Oral (F) 97.6 F 08/28/2014 Medi nicholas Group Heart Rate 76 08/28/2014 Medical Grou p Systolic (mm Hg) 132 08/28/2014 Medical Group Diastolic (mm Hg) 90 08/28/2014 Medical Group Temperature Oral (F) 97.4 F 06/19/2014 Medi nicholas Group Weight 274 06/19/2014 Medical Grou p Systolic (mm Hg) 130 06/19/2014 Medical Group Diastolic (mm Hg) 78 06/19/2014 Medical Group Temperature Oral (F) 97.8 F 05/19/2014 Medi nicholas Group Weight 274 05/19/2014 Medical Grou p Systolic (mm Hg) 130 05/19/2014 Medical Group Diastolic (mm Hg) 80 05/19/2014 Medical Group Temperature Oral (F) 97.8 F 05/05/2014 Medi nicholas Group Weight 274.4 04/20/2014 Medical Grou p Temperature Oral (F) 97.7 F 04/20/2014 Medi nicholas Group Heart Rate 72 04/20/2014 Medical Grou p Systolic (mm Hg) 128 04/20/2014 Medical Group Diastolic (mm Hg) 80 04/20/2014 Medical Group Weight 273 03/27/2014 Medical Grou p Systolic (mm Hg) 140 03/27/2014 Medical Group Diastolic (mm Hg) 88 03/27/2014 Medical Group Temperature Oral (F) 97.5 F 03/27/2014 Medi nicholas Group Heart Rate 68 03/27/2014 Medical Grou p Weight 275 01/18/2014 Medical Grou p Systolic (mm Hg) 160 01/18/2014 Medical Group Diastolic (mm Hg) 92 01/18/2014 Medical Group Temperature Oral (F) 97.9 F 01/18/2014 Medi nicholas Group Heart Rate 76 01/18/2014 Medical Grou p Weight 278 12/26/2013 Medical Grou p Systolic (mm Hg) 140 12/26/2013 Medical Group Diastolic (mm Hg) 94 12/26/2013 Medical Group Temperature Oral (F) 98.1 F 12/26/2013 Medi nicholas Group Heart Rate 84 12/26/2013 Medical Grou p Weight 296 09/27/2013 Medical Grou p Systolic (mm Hg) 120 09/27/2013 Medical Group Diastolic (mm Hg) 80 09/27/2013 Medical Group Heart Rate 80 09/27/2013 Medical Grou p Temperature Oral (F) 98.0 F 09/27/2013 Medi nicholas Group Weight 287 09/02/2013 Medical Grou p Temperature Oral (F) 98.2 F 09/02/2013 Medi nicholas Group Heart Rate 96 09/02/2013 Medical Grou p Systolic (mm Hg) 124 09/02/2013 Medical Group Diastolic (mm Hg) 84 09/02/2013 Medical Group Height 65.25 08/30/2013 Medical Grou p Weight 301 08/30/2013 Medical Grou p Temperature Oral (F) 98.4 F 08/30/2013 Medi nicholas Group Heart Rate 80 08/30/2013 Medical Grou p Systolic (mm Hg) 130 08/30/2013 Medical Group Diastolic (mm Hg) 88 08/30/2013 Medical Group Encounters Location Location Encounter Encounter Reason Attending ADM DC Stat us Source Details Type Number For Provider Date Date Visit [facility] Lab Report [id number] Arnulfo 08/28 08/28 [place] [facility] [address] [facility] an[place]io Wilson MD Group Internal Medicine [facility] Lab Report [id number] Arnulfo 08/28 08/28 [place] [facility] [address] [facility] Wilson MD Group Internal Medicine [facility] Office [id number] Arnulfo 11/20 11/20 [place] [address] [facility] Wilson MD Group Internal Medicine [facility] Office [id number] Arnulfo 04/06 04/06 [place] Visit [address] [facility] Wilson MD Group Internal Medicine [facility] Lab Report [id number] Arnulfo 04/06 04/06 [place] [facility] [address] [facility] Wilson MD Group Internal Medicine [facility] [place] Office [id number] Arnulfo 07/19 07/19 [place] [address] [facility] Wilson MD Group Internal Medicine [facility] Lab Report [id number] 07/19 [place] [facility] [address] [facility] Wilson MD Group Internal Medicine Outpatient [id number] 07/19 Activ e [facility] [place] Outpatient [id number] 10/19 Activ e [facility] [place] Outpatient [id number] ARNULFO 12/17 Activ e [facility] [place] Outpatient [id number] ARNULFO 05/06 Activ [facility] [place] Outpatient [id number] ARNULFO 06/16 [facility] Outpatient [id number] ARNULFO 07/25 [id number] Arnulfo 07/29 07/30 [facility] Outpatient Services [facility] [place] Outpatient [id number] JUANA 07/31 [facility] /2015 [place] [facility] [id number] ARNULFO 08/21 [facility] [place] Outpatient [id number] ARNULFO 10/28 [facility] Outpatient [id number] ARNULFO 02/25 Activ e [facility] /2016 [place] Outpatient [id number] ARNULFO 06/24 Activ e [facility] /2016 [place] Outpatient [id number] KING WILLIAM 07/02 Active [facility] BRYANNA /2016 [place] Outpatient [id number] NUCLEAR 07/23 Active [facility] VISIT /2016 [facility] Outpatient [id number] DOPPLER 07/27 Active [facility] VISIT /2016 [place] Outpatient [id number] DOPPLER 08/10 Active [facility] VISIT /2016 [place] Outpatient [id number] DOPPLER 08/10 Active [facility] VISIT /2016 [place] Outpatient [id number] SELENE 09/03 Active [facility] BRY[facility]NA /2016 [facility] Outpatient [id number] DOPPLER 09/10 Active [facility] VISIT /2016 [place] Outpatient [id number] ARNULFO 10/28 [id number]/03 11/05 Medicine Message /2016 Medical [facility] Outpatient [id number] ARNULFO 11/09 [facility] Outpatient [id number] Arnulfo 11/09 11/10 Internal [facility] /2016 Medic al Medicine Group Wilson MG Phone [id number] 11/16 11/18 Internal Message /2016 Medical Medicine Group Steve MG Phone [id number] 12/01 12/03 Internal Message /2017 [facility] Family Phone [id number] 12/14 12/16 MH Medicine Message /2017 [facility] Outpatient [id number] ARNULFO 03/08 Activ e [facility] Outpatient [id number] XRAY VISIT 03/08 [facility] [place] [facility] [id number] Arnulfo 03/08 03/09 Internal [facility] /2017 Medic al [facility] Steve MG Outpatient [id number] NURSE 03/08 03/09 MH Radiology VISIT /2017 [facility] Outpatient [id number] JEAN 05/19 Active [facility] [place] [facility] Ambulatory [id number] Jean 05/19 05/19 Internal Pre-Reg [place] /2017 [facility] Outpatient [id number] ARNULFO 05/31 Activ e [facility] [place] [facility] Outpatient [id number] Arnulfo 05/31 06/01 Internal [facility] /2017 Medic [facility] Steve MG Outside [id number] 06/15 06/17 Cardiology Medical /2017 Medic al [place] [facility] Outpatient [id number] NADIM 06/30 Active [facility] MG Outpatient [id number] Nadim 06/30 07/01 Gastroenter Torey /2017 Medic al [facility] Outpatient [id number] LAB VISIT 07/05 [facility] MG Ambulatory [id number] Arnulfo 07/05 07/06 Internal Pre-Reg [facility] Medi nich[facility] Outpatient [id number] ARNULFO 07/12 Activ e [facility] MG Ambulatory [id number] Arnulfo 07/12 07/12 Internal Pre-Reg [facility] Medi nicholas [facility] Outpatient [id number] ARNULFO 07/26 Activ e [facility] MG Outpatient [id number] Arnulfo 07/26 07/27 Internal [facility] /2017 Medic al [facility] Steve MG Phone [id number] 07/28 07/30 Gastroenter Message /2017 Medi nicholas ology Group [facility] Outside [id number] 08/14 08/16 Gastroenter Medical /2017 [facility] ology [employer] [place] [facility] Between [id number] 03/28 03/29 Internal Visit /2018 [facility] Phone [id number] 12/28 12/30 Internal Message /2019 [facility] Procedures Procedure Code Date Perfomer Comments Source Mammogram<sup>1</sup> [id number] negative, Medical 8 [facility] Colonoscopy<sup>1</mcmanus [id number] hemorrhoids Medical p> 6 Group Colonoscopy<sup>2</mcmanus [id number] hemorrhoids Medical p> 6 Group diabetic foot check [id number] yes [facility] dical 4 Group mammogram 89939 Normal Bilateral Medic al 2 Group colonoscopy 89863 Normal Medical 2 Group Cholecystectomy [id number] Medica l Group, [facility] [place] Hysterectomy [id number] Medical Group, [facility] [place] Assessment and Plan No Data Provided for This Section Plan of Care No Data Provided for This Section Social History Social History Date Source Social History TypeResponse 07/02/2017 Medical G [facility] Alcohol Past Employment/School Work/School description: Disability/SS. Exercise 1 Substance Abuse Use: None. Smoking Status Former smoker; Type: Cigarettes; Exposur e to Tobacco Smoke SELF; Cigarette Smoking Last 365 Days No; Reg Smoking Cessation Counseling No; Tobacco use per day: 60; Started at age: 18.0; Stopped at age: 42; 2 entered on: 07/26/18 [id number] smoke about 3 packs a day. Social History TypeResponse 07/31/2016 [place] [place] Smoking Status Never smoker; Exposure to Tobacco Smoke None; Cigarette Smoking Last 365 Days No; Reg Smoking Cessation Counseling No Family History No Data Provided for This Section Advance Directives No Data Provided for This Section Functional Status No Data Provided for This Section
--- OUTSIDE RECORDS SUMMARY | 2020-04-10 14:46 | XMS REPORT | Continuity of Care Document ---
:1955 Author Organization [facility] Care Team Providers Name Role Phone MD Lupe, Laury Unavailable Unavailable Insurance Providers Payer name Policy type / Policy ID Covered green party ID Policy Hol brigid Coverage type *SELF PAY* *SELF PAY* [facility] - MEDICARE SOLUTIONS - MEDICARE DIRECT A [...] *SELF PAY* Encounters Encounter Performer Location Date Office Visit Laury Andrade MD [facility] [place] Nov 20, 2014 Internal Medicine Problems Problem Effective Dates [...] Active OVERACTIVE BLADDER Aug 28, 2014 Active OBESITY Nov 20, 2014 Active OTITIS MEDIA Nov 20, 2014 Active LOWER BACK PAIN Nov 20, 2014 Active Procedures Date Description Comments Aug 30, 2013 smoking status former smoker Apr 30, 2012 colonoscopy Normal Apr 30, 2012 mammogram Normal Bilateral Dec 26, 2013 diabetic foot check yes May 05, 2014 diabetic foot check Exam Performed Today May 19, 2014 smoking status Former smoker Jun 08, 2014 mammogram Normal Aug 28, 2014 smoking status Former smoker Nov 20, 2014 smoking status Former smoker Medications Medication Instructions Start Date Status METFORMIN HCL 1000 MG TABS 1 po BID Aug 30, 2013 Activ e SIMVASTATIN 40 MG TABS 1 po daily Aug 30, 2013 Active HYDROCODONE-ACETAMINOPHEN 5-325 1 po BID PRN pain Aug 30, 2013 Active MG TABS METOLAZONE 2.5 MG TABS take one pill [...] % use BID to affected area Dec 26, 014 Inactive CREA VESICARE 5 MG TABS 1 tablet daily Aug 28, 2014 Inactive TRIAMCINOLONE ACETONIDE 0.1 % Apply to affected areas twice a Se 2013 Inactive CREA day CIPRODEX 0.3-0.1 % SUSP prn Nov 20, 2014 Active AUGMENTIN 875-125 MG TABS one by mouth twice daily with Nov 20, 2014 Active food GLIPIZIDE 10 MG TABS one by mouth twice daily with Aug 30, 2013 Active food Immunizations Vaccine Date Status pneumococcal immunization administered Sep 27, 2013 c ompleted influenza immunization (Flu Vax) has been administered Aug 312012 completed influenza immunization (Flu Vax) has been administered Aug 012013 completed Vital Signs Date Description Test Result Aug 30, 2013 height E&M - 8302-2 HEIGHT 65.25 in Aug 30, 2013 weight Dima&M - 3141-9 WEIGHT 301 lb Aug 30, [...] 84 mm Hg Sep 27, 2013 weight Dima&M - 3141-9 WEIGHT 296 lb Sep 27, 2013 blood pressure, systolic - 8480-6 BP SYSTOLIC 120 mm Hg Sep 27, 2013 blood pressure, diastolic - 8462-4 BP DIASTOLIC 80 mm Hg Sep 27, 2013 pulse rate E&M - 8867-4 PULSE RATE 80 /min Sep 27, 2013 temperature E&M TEMPERATURE 98.0 deg f Dec 26, 2013 weight Dima&Zhen - 3141-9 WEIGHT 278 lb Dec 26, 2013 blood pressure, systolic - 8480-6 BP SYSTOLIC 140 mm Hg Dec 26, 2013 blood pressure, diastolic - 8462-4 BP DIASTOLIC 94 mm Hg Dec 26, 2013 temperature E&M TEMPERATURE 98.1 deg f Dec 26, 2013 pulse rate E&M - 8867-4 PULSE RATE 84 /min Jan 18, 2014 weight Dima&M - 3141-9 WEIGHT 275 lb Jan 18, [...] - 8462-4 BP DIASTOLIC 90 mm Hg Nov 20, 2014 height E&M - 8302-2 HEIGHT 65.25 in Nov 20, 2014 weight E&M - 3141-9 WEIGHT 283 lb Nov 20, 2014 temperature E&M TEMPERATURE 97.8 deg f Nov 20, 2014 pulse rate E&M - 8867-4 PULSE RATE 72 /min Nov 20, 2014 blood pressure, systolic - 8480-6 BP SYSTOLIC 138 mm Hg Nov 20, 2014 blood pressure, diastolic - 8462-4 BP DIASTOLIC 86 mm Hg Results Date Description Test Name Value Reference Interpretation Sta tus Mar 27, sodium, serum SODIUM 141 mmol/L [phone] Mar 27, potassium, serum POTASSIUM 3.9 mmol/L 3.3-5.0 2013Mar 27, albumin, serum ALBUMIN 3.5 g/dL 3.5-5.0 2013Mar 27, calcium, serum CALCIUM 9.0 mg/dL 8.8-10.0 2013Mar 27, creatinine, serum CREATININE 0.64 mg/dL 0.46-1.20 2013Mar 27, urea nitrogen, blood BUN 8 mg/dL 07-19Mar 27, alkaline phosphatase, ALK PHOS 54 U/L 2013Mar 27, aspartate SGOT (AST) 20 U/L 2013 aminotransferase (SGOT), serum Mar 27, alanine SGPT (ALT) 15 U/L 2013 aminotransferase (SGPT), serum Mar 27, hemoglobin [...] 28, urea nitrogen, blood BUN 9 mg/dL 07-19Aug 28, alkaline phosphatase, ALK PHOS 61 U/L 2013Aug 28, aspartate SGOT (AST) 18 U/L 2013 aminotransferase (SGOT), serum Aug 28, alanine SGPT (ALT) 13 U/L 2013 aminotransferase (SGPT), serum Aug 28, hemoglobin A1C, blood, HGBA1C 6.0 % 3.0-6.0 2013 as % of total hemoglobin Nov 17, sodium, serum SODIUM 142 mmol/L [phone] Nov 17, potassium, serum POTASSIUM 4.1 mmol/L 3.3-5.0 2013Nov 17, albumin, serum ALBUMIN 3.5 g/dL 3.5-5.0 2013Nov 17, calcium, serum CALCIUM 8.9 mg/dL 8.8-10.0 2013Nov 17, creatinine, serum CREATININE 0.70 mg/dL 0.46-1.20 2013Nov 17, urea nitrogen, blood BUN 9 mg/dL 8-20 2013Nov 17, alkaline phosphatase, ALK PHOS 57 U/L 26-102 2013 serum Nov 17, aspartate SGOT (AST) 15 U/L -42 2013 aminotransferase (SGOT), serum Nov 17, alanine SGPT (ALT) 12 U/L 43 2013 aminotransferase (SGPT), serum Nov 17, hemoglobin A1C, blood, HGBA1C 6.5 % 3.0-6.0 High 2014 as % of total hemoglobin
--- OUTSIDE RECORDS SUMMARY | 2020-04-10 14:47 | XMS REPORT | Continuity of Care Document ---
:1955 Author Organization [facility] Care Team Providers Name Role Phone MD Lupe, Laury Unavailable Unavailable Insurance Providers Payer name Policy type / Policy ID Covered constitution party ID Policy Hol brigid Coverage type [...] PAY* *SELF PAY* *SELF PAY* *SELF PAY* [place] *SELF PA[place]* [place] *SELF PAY* [place] *SELF PAY* Encounters Encounter Performer Location Date Office Visit Laury Andrade MD [facility] [place] April 06, 2015 Internal Medicine Problems Problem Effective Dates Problem [...] 2014 Active OTITIS MEDIA Nov 20, 2014 Inactive LOWER BACK PAIN Nov 20, 2014 Active [...] Nov 20, 2014 smoking status Former smoker April 06, 2015 smoking status Former smoker Medications Medication Instructions Start Date Status METFORMIN HCL 1000 MG TABS 1 po BID Aug 30, 2013 Activ e SIMVASTATIN 40 MG TABS 1 po daily Aug 30, 2013 Active METOLAZONE 2.5 MG [...] twice a Se 2013 Inactive CREA day AUGMENTIN 875-125 MG TABS one by mouth twice daily with Nov 20, 2014 Inactive food GLIPIZIDE 10 MG TABS one by mouth twice daily with Aug 30, 2013 Active food CIPRODEX 0.3-0.1 % SUSP prn Nov 20, 2014 Inactive HYDROCODONE-ACETAMINOPHEN 5-325 1 po BID PRN pain Aug 30, 2013 Inactive MG TABS TYLENOL WITH CODEINE #3 300-30 One po prn April 06, 2015 A ctive MG TABS Immunizations Vaccine Date Status pneumococcal immunization administered [...] - 8462-4 BP DIASTOLIC 86 mm Hg April 06, 2015 height E&M - 8302-2 HEIGHT 65.25 in April 06, 2015 weight E&M - 3141-9 WEIGHT 283 lb April 06, 2015 temperature E&M TEMPERATURE 98.6 deg f April 06, 2015 pulse rate E&M - 8867-4 PULSE RATE 72 /min April 06, 2015 blood pressure, systolic - 8480-6 BP SYSTOLIC 128 mm Hg April 06, 2015 blood pressure, diastolic - 8462-4 BP DIASTOLIC 92 mm Hg Results Date Description Test Name Value Reference Interpretation Sta tus Mar 27, sodium, serum SODIUM 141 mmol/L [phone] Mar 27, potassium, serum POTASSIUM 3.9 mmol/L [...] Mar 27, alanine SGPT (ALT) 15 U/L -43 2013 aminotransferase (SGPT), serum Mar 27, hemoglobin [...] hemoglobin A1C, blood, HGBA1C 6.0 % 3.0-6.0 2014 as % of total hemoglobin Nov 17, sodium, serum SODIUM 142 mmol/L [phone] Nov 17, potassium, serum POTASSIUM 4.1 mmol/L 3.3-5.0 2013Nov 17, albumin, serum ALBUMIN 3.5 g/dL 3.5-5.0 2013Nov 17, calcium, serum CALCIUM 8.9 mg/dL 8.8-10.0 2013Nov 17, creatinine, serum CREATININE 0.70 mg/dL 0.46-1.20 2013Nov 17, urea nitrogen, blood BUN 9 mg/dL 07-19Nov 17, alkaline phosphatase, ALK PHOS 57 U/L 2013Nov 17, aspartate SGOT (AST) 15 U/L 2013 aminotransferase (SGOT), serum Nov 17, alanine SGPT (ALT) 12 U/L 2013 aminotransferase (SGPT), serum Nov 17, hemoglobin A1C, blood, HGBA1C 6.5 % 3.0-6.0 High 2014 as % of total hemoglobin
--- OUTSIDE RECORDS SUMMARY | 2020-04-10 14:47 | XMS REPORT | Continuity of Care Document ---
:1955 Author Organization [facility] Care Team Providers Name Role Phone MD [...] Location Date Lab Report Laury Andrade MD [facility] [place] April 06, 2015 Internal Medicine Problems Problem [...] LOWER BACK PAIN Nov 20, 2014 Active HYPERTENSION April 06, 2015 Active Procedures Date Description Comments Aug 30, [...] Mar 27, sodium, serum SODIUM 141 mmol/L [phone] Mar 27, potassium, serum POTASSIUM 3.9 mmol/L [...] aminotransferase (SGPT), serum Mar 27, hemoglobin A1C, HGBA1C 6.0 % 3.0-6.0 2013 blood, as % of total hemoglobin Aug 28, [...] aminotransferase (SGPT), serum Aug 28, hemoglobin A1C, HGBA1C 6.0 % 3.0-6.0 2014 blood, as % of total hemoglobin Nov 17, sodium, serum SODIUM 142 mmol/L [phone] Nov 17, potassium, serum POTASSIUM 4.1 mmol/L [...] aminotransferase (SGPT), serum Nov 17, hemoglobin A1C, HGBA1C 6.5 % 3.0-6.0 High 2014 blood, as % of total hemoglobin April 06, sodium, serum SODIUM 140 mmol/L [phone] April 06, potassium, serum POTASSIUM 4.3 mmol/L 3.3-5.0 2014April 06, albumin, serum ALBUMIN 3.6 g/dL 3.5-5.0 2014April 06, calcium, serum CALCIUM 8.8 mg/dL 8.8-10.0 2014April 06, creatinine, serum CREATININE 0.67 mg/dL 0.46-1.20 2014April 06, urea nitrogen, blood BUN 7 mg/dL 07-19 Low 2014April 06, alkaline phosphatase, ALK PHOS 53 U/L 2014April 06, aspartate SGOT (AST) 19 U/L 2014 aminotransferase (SGOT), serum April 06, alanine SGPT (ALT) 14 U/L 2014 aminotransferase (SGPT), serum April 06, cholesterol, serum CHOLESTEROL 117 mg/dl 120-200 Low 2014April 06, HDL cholesterol, HDL 36 mg/dl 31-79 2014 serum April 06, LDL cholesterol, LDL 48 mg/dl 0-130 2014 serum April 06, hemoglobin A1C, HGBA1C 5.9 % 3.0-6.0 2014 blood, as % of total hemoglobin
--- OUTSIDE RECORDS SUMMARY | 2020-04-10 14:48 | XMS REPORT | Continuity of Care Document ---
:1955 Author Organization [facility] Care Team Providers Name Role Phone [...] Location Date Lab Report Laury Andrade MD [facility] [place] jeron[place] Jul 19, 2015 Internal Medicine Problems Problem Effective Dates [...] April 06, 2015 smoking status Former smoker Jul 19, 2015 smoking status Former smoker Medications Medication [...] off with water; reapply in 1 week TRIAMCINOLONE ACETONIDE 0.1 % use BID to affected area Parveen 27, 2 014 Inactive CREA VESICARE 5 MG TABS [...] April 06, 2015 A ctive MG TABS LYRICA 75 MG CAPS takes 2 capsules twice daily Mar 27, 2014 A ctive VICTOZA 18 MG/3ML SOLN 1.2 mg Subcutanous daily Jul 19, 2015 Active NOVOTWIST 32G X 5 MM MISC Use as directed daily Jul 19, 2015 Active METANX 3-90.314-2-35 MG CAPS one by mouth twice daily Jul 19 15 Active Immunizations Vaccine Date Status pneumococcal immunization administered [...] 98.0 deg f Dec 26, 2013 weight Josué - Obdulia1-9 WEIGHT 278 lb Dec 26, 2013 blood pressure, systolic - 8480-6 BP SYSTOLIC 140 mm Hg Dec 26, 2013 blood pressure, diastolic - 8462-4 BP DIASTOLIC 94 mm Hg Dec 26, 2013 temperature E&M TEMPERATURE 98.1 deg f Dec 26, 2013 pulse rate E&M - 8867-4 PULSE RATE 84 /min Jan 18, 2014 weight E&M - Obdulia1-9 WEIGHT 275 lb Jan 18, 2014 blood pressure, systolic - 8480-6 BP SYSTOLIC 160 mm Hg Jan 18, 2014 blood pressure, diastolic - 8462-4 BP DIASTOLIC 92 mm Hg Jan 18, 2014 temperature E&M TEMPERATURE 97.9 deg f Jan 18, 2014 pulse rate E&M - 8867-4 PULSE RATE 76 /min Mar 27, 2014 weight Dima&Zhen - Obdulia1-9 WEIGHT 273 lb Mar 27, 2014 blood pressure, systolic - 8480-6 BP SYSTOLIC 140 mm Hg Mar 27, 2014 blood pressure, diastolic - 8462-4 BP DIASTOLIC 88 mm Hg Mar 27, 2014 temperature E&M TEMPERATURE 97.5 deg f Mar 27, 2014 pulse rate E&M - 8867-4 PULSE RATE 68 /min April 20, 2014 weight Dima&Zhen - Obdulia1-9 WEIGHT 274.4 lb April 20, 2014 temperature [...] 97.8 deg f May 19, 2014 weight Dima&Zhen - Obdulia1-9 WEIGHT 274 lb May 19, 2014 blood [...] - 8462-4 BP DIASTOLIC 92 mm Hg Jul 19, 2015 height E&M - 8302-2 HEIGHT 65.25 in Jul 19, 2015 weight E&M - 3141-9 WEIGHT 290.38 lb Jul 19, 2015 pulse rate E&M - 8867-4 PULSE RATE 84 /min Jul 19, 2015 temperature E&M TEMPERATURE 98.2 deg f Jul 19, 2015 blood pressure, systolic - 8480-6 BP SYSTOLIC 138 mm Hg Jul 19, 2015 blood pressure, diastolic - 8462-4 BP DIASTOLIC 72 mm Hg Results Date Description Test Name Value Reference Interpretation Sta tus Mar 27, sodium, serum SODIUM 141 mmol/L [phone] Mar 27, potassium, serum POTASSIUM 3.9 mmol/L [...] 28, hemoglobin A1C, HGBA1C 6.0 % 3.0-6.0 2013 blood, as % of total hemoglobin Nov 17, sodium, serum SODIUM 142 mmol/L [phone] Nov 17, potassium, serum POTASSIUM 4.1 mmol/L 3.3-5.0 2013Nov 17, albumin, serum ALBUMIN 3.5 g/dL 3.5-5.0 2013Nov 17, calcium, serum CALCIUM 8.9 mg/dL 8.8-10.0 2013Nov 17, creatinine, serum CREATININE 0.70 mg/dL 0.46-1.20 2013Nov 17, urea nitrogen, blood BUN 9 mg/dL -2013Nov 17, alkaline phosphatase, ALK PHOS 57 U/L -2013Nov 17, aspartate SGOT (AST) 15 U/L 2013 aminotransferase (SGOT), serum Nov 17, alanine SGPT (ALT) 12 U/L 2013 aminotransferase (SGPT), serum Nov 17, hemoglobin A1C, HGBA1C 6.5 % 3.0-6.0 High 2013 blood, as % of total hemoglobin April 06, sodium, serum SODIUM 140 mmol/L [phone] April 06, potassium, serum POTASSIUM 4.3 mmol/L 3.3-5.0 2014April 06, albumin, serum ALBUMIN 3.6 g/dL 3.5-5.0 2014April 06, calcium, serum CALCIUM 8.8 mg/dL 8.8-10.0 2014April 06, creatinine, serum CREATININE 0.67 mg/dL 0.46-1.20 2014April 06, urea nitrogen, blood BUN 7 mg/dL 8-20 Low 2014April 06, alkaline phosphatase, ALK PHOS 53 U/L 2014April 06, aspartate SGOT (AST) 19 U/L 2014 aminotransferase (SGOT), serum April 06, alanine SGPT (ALT) 14 U/L 2014 aminotransferase (SGPT), serum April 06, cholesterol, serum CHOLESTEROL 117 mg/dl 120-200 Low 2014April 06, HDL cholesterol, HDL 36 mg/dl 31-79 2014April 06, LDL cholesterol, LDL 48 mg/dl 0-130 2014April 06, hemoglobin A1C, HGBA1C 5.9 % 3.0-6.0 2014 blood, as % of total hemoglobin Jul 19, hemoglobin A1C, HGBA1C 6.9 % <=5.6 High 2014 blood, as % of total hemoglobin Jul 19, sodium, serum SODIUM 143 MEQ/L [phone] mmol/L Jul 19, potassium, serum POTASSIUM 3.9 MEQ/L 3.5-5.1 2014 mmol/L Jul 19, creatinine, serum CREATININE 0.8 mg/dL 0.5-1.4 2014Jul 19, urea nitrogen, blood BUN 11 mg/dL 7-22 2014Jul 19, urea BUN/CREAT 14 null 6-25 2014 nitrogen/creatinine ratio, serum Jul 19, albumin, serum ALBUMIN 3.4 g/dL 3.5-5.0 Low 2014Jul 19, calcium, serum CALCIUM 8.5 mg/dL 8.5-10.5 2014Jul 19, alanine SGPT (ALT) 19 U/L 0-65 2014 aminotransferase (SGPT), serum Jul 19, aspartate SGOT (AST) 18 U/L 0-37 2014 aminotransferase (SGOT), serum Jul 19, alkaline phosphatase, ALK PHOS 73 U/L 39-136 2014 serum
--- OUTSIDE RECORDS SUMMARY | 2020-04-10 14:49 | XMS REPORT | Continuity of Care Document ---
:1955 Author Organization [facility] Care Team Providers Name Role Phone MD [...] Location Date Office Visit Laury Andrade MD [facility] [place] [facility] Jul 19, 2015 Internal Medicine Problems Problem [...] Description Test Name Value Reference Interpretation Sta tuMar 27, sodium, serum SODIUM 141 mmol/L [phone] Mar 27, potassium, serum POTASSIUM 3.9 mmol/L [...] Nov 17, sodium, serum SODIUM 142 mmol/L [phone] Nov 17, potassium, serum POTASSIUM 4.1 mmol/L [...] April 06, sodium, serum SODIUM 140 mmol/L [phone] April 06, potassium, serum POTASSIUM 4.3 mmol/L [...] 06, hemoglobin A1C, HGBA1C 5.9 % 3.0-6.0 2015 blood, as % of total hemoglobin Jul 19, hemoglobin A1C, HGBA1C 6.9 % <=5.6 High 2014 blood, as % of total hemoglobin Jul 19, sodium, serum SODIUM 143 MEQ/L [phone] mmol/L Jul 19, potassium, serum POTASSIUM 3.9 [...]
--- OUTSIDE RECORDS SUMMARY | 2020-04-10 14:53 | XMS REPORT ---
:1955 Author Organization [facility] t Address [address] [place] [address] Care Team Providers Name Role Phone DR Ryan HERNANDEZ Unavailable Unavailable Problems This patient has no known problems. Allergies, Adverse Reactions, Alerts This patient has no known allergies or adverse reactions. Medications Ordered Filled Start Stop Current Ordering Indication Dosage Frequency Signature Comments Components Medication Medication Date Date Medication? Clinician (SIG) Name Name Cipro 500 Cipro 500 No 1 Q12H Cipro 500 mg tablet mg tablet mg tablet Take 1 Take 1 Take 1 tablet tablet tablet every 12 every 12 every 12 hours by hours by hours by oral route oral route oral route for 10 for 10 for 10 days. days. days. Diflucan Diflucan No 1 Q1D Diflucan 150 mg 150 mg 150 mg tablet Take tablet Take tablet 1 tablet 1 tablet Take 1 every day every day tablet by oral by oral every day route for 5 route for 5 by oral days. days. route for 5 days. duloxetine duloxetine No 1capsul Q1D duloxeti ne 60 mg 60 mg e(s) 60 mg capsule,del capsule,del capsule, de ayed ayed layed release release release Take 1 Take 1 Take 1 capsule capsule capsule every day every day every day by oral by oral by oral route for route for route for 30 days. 30 days. 30 days. gabapentin gabapentin No 2capsul TID gabapent in 300 mg 300 mg e(s) 300 mg capsule capsule capsule Take 2 Take 2 Take 2 capsules 3 capsules 3 capsules 3 times a day times a day times a by oral by oral day by route for route for oral route 30 days. 30 days. for 30 days. glyburide 5 glyburide 5 No 1 Q1D glyburid e mg tablet mg tablet 5 mg Take 1 Take 1 tablet tablet tablet Take 1 every day every day tablet by oral by oral every day route for route for by oral 90 days. 90 days. route for 90 days. lisinopril lisinopril No lisinopril 10 mg 10 mg 10 mg tablet TAKE tablet TAKE tablet ONE (1) ONE (1) TAKE ONE TABLET(S) TABLET(S) (1) BY MOUTH BY MOUTH TABLET(S) DAILY. DAILY. BY MOUTH DAILY. metformin metformin No metformin 1,000 mg 1,000 mg 1,000 mg tablet TAKE tablet TAKE tablet ONE (1) ONE (1) TAKE ONE TABLET(S) TABLET(S) (1) BY MOUTH BY MOUTH TABLET(S) TWICE A TWICE A BY MOUTH DAY. DAY. TWICE A DAY. Tylenol-Cod Tylenol-Cod No 1 Q7H Tylenol- Co eine #3 300 eine #3 300 deine #3 mg-30 mg mg-30 mg 300 mg-30 tablet Take tablet Take mg table t 1 tablet 1 tablet Take 1 every 6-8 every 6-8 tablet hours by hours by every 6-8 oral route oral route hours by for 30 for 30 oral route days. days. for 30 days. Immunizations Ordered Immunization Name Filled Immunization Name Date Comments influenza, injectable, influenza, injectable, 2019-08-30 Complete d quadrivalent quadrivalent 00:00:00 Vital Signs Vital Name Observation Time Observation Value Comments BP Diastolic 2020-02-09 00:00:00 69 mm[Hg] Height 2020-02-09 00:00:00 64 [in_i] BP Systolic 2020-02-09 00:00:00 110 mm[Hg] Body Weight 2020-02-09 00:00:00 3872 [oz_av] BP Diastolic 2020-01-03 00:00:00 70 mm[Hg] Height 2020-01-03 00:00:00 64 [in_i] BP Systolic 2020-01-03 00:00:00 126 mm[Hg] Body Weight 2020-01-03 00:00:00 249 [lb_av] BP Diastolic 2019-12-20 00:00:00 65 mm[Hg] Height 2019-12-20 00:00:00 64 [in_i] BP Systolic 2019-12-20 00:00:00 123 mm[Hg] Body Weight 2019-12-20 00:00:00 255 [lb_av] BP Diastolic 2019-12-15 00:00:00 62 mm[Hg] Height 2019-12-15 00:00:00 64 [in_i] BP Systolic 2019-12-15 00:00:00 123 mm[Hg] Body Weight 2019-12-15 00:00:00 4086 [oz_av] BP Diastolic 2019-11-28 00:00:00 65 mm[Hg] Height 2019-11-28 00:00:00 64 [in_i] BP Systolic 2019-11-28 00:00:00 109 mm[Hg] Body Weight 2019-11-28 00:00:00 3984 [oz_av] BP Diastolic 2019-08-04 00:00:00 66 mm[Hg] Height 2019-08-04 00:00:00 64 [in_i] BP Systolic 2019-08-04 00:00:00 124 mm[Hg] Body Weight 2019-08-04 00:00:00 4160 [oz_av] BP Diastolic 2019-03-31 00:00:00 99 mm[Hg] Height 2019-03-31 00:00:00 64 [in_i] BP Systolic 2019-03-31 00:00:00 148 mm[Hg] Body Weight 2019-03-31 00:00:00 4248 [oz_av] BP Diastolic 2019-01-12 00:00:00 62 mm[Hg] Height 2019-01-12 00:00:00 64 [in_i] BP Systolic 2019-01-12 00:00:00 134 mm[Hg] Body Weight 2019-01-12 00:00:00 4249 [oz_av] BP Diastolic 2018-12-06 00:00:00 73 mm[Hg] Height 2018-12-06 00:00:00 64 [in_i] BP Systolic 2018-12-06 00:00:00 143 mm[Hg] Body Weight 2018-12-06 00:00:00 4264 [oz_av] BP Diastolic 2018-11-11 00:00:00 74 mm[Hg] Height 2018-11-11 00:00:00 64 [in_i] BP Systolic 2018-11-11 00:00:00 153 mm[Hg] Body Weight 2018-11-11 00:00:00 4210 [oz_av] Procedures and Interventions Procedure Date / Time Performed Performing Clinici an Esophagoenterostomy 2020-02-09 00:00:00 Colonoscopy 2020-01-03 00:00:00 CT, abdomen + pelvis, w/ contrast 2019-12-15 00:00:00 XR, chest 2019-12-15 00:00:00 Cholecystectomy Hysterectomy Encounters Start End Encounter Admission Attending Care Care Encounter Date/Time Date/Time Type Type Clinicians Facility Department ID 2020-01-17 Inpatient Rene HERNANDEZ [facility] [id number] 08:15:00 WERO 2020-03-06 2020-03-06 Leon [facility] [place] - [id number] 00:00:00 00:00:00 Blake Moore MD: [address], [place] [address], Ph. 2020-01-11 2020-02-11 Outpatient Rene HERNANDEZ [facility] [id number] 10:56:00 23:59:00 WERO 2020-02-09 2020-02-09 Leon [facility]G [place] - [id number] 00:00:00 00:00:00 Blake Moore MD: [address], [place] [address], Ph. 2020-01-03 2020-01-03 Michael HOFFMANG [place] - [id number] 00:00:00 00:00:00 Tomás Lambert MD: [address], [place] [address], Ph. [phone] 2019-12-20 2019-12-20 Michael MMG [place] - [id number] 00:00:00 00:00:00 Tomás Lambert MD: [address], [place] [address], Ph. [phone] 2019-12-15 2019-12-15 Leon [facility]G [place] - [id number] 00:00:00 00:00:00 Blake Moore MD: [address], [place] [address], Ph. 2019-11-28 2019-11-28 Leon [facility]G [place] - [id number] 00:00:00 00:00:00 Blake Moore MD: [address], [place] [address], Ph. 2019-08-04 2019-08-04 Leon MCGHEE [place] - [id number] 00:00:00 00:00:00 Blake Moore MD: [address], [place] [address], Ph. 2019-03-31 2019-03-31 Leon MCG[place] - [id number] 00:00:00 00:00:00 Blake Moore MD: [address], [place] [id number], Ph. 2019-01-12 2019-01-12 Leon MCGHEE [place] - [id number] 00:00:00 00:00:00 Blake Moore MD: [address], [place] [address], Ph. 2018-12-06 2018-12-06 Alie MCGHEE [place] - [id number] 00:00:00 00:00:00 Irina DEPUTY CHIEF EXECUTIVE: [address], [place] [id number], Ph. 2018-11-11 2018-11-11 Leon MCG[place]E [place] - [id number] 00:00:00 00:00:00 Blake Moore MD: [address], [place] [address], Ph. 2018-11-03 2018-11-03 Leon [place]CG[place] - [id number] 00:00:00 00:00:00 Blake Moore MD: [place] [address], [place] [address], Ph. Results Test Description Test Time Test Comments Text Results Atomic Results Result Comments VITAMIN D TOTAL 25 (OH) 2020-01-12 17:44:00 Test Item Value Reference Range Comments VITAMIN D 25(OH) (test code = VD) 13.2 ng/mL 30.0-100.0 [id number] 16:38:00 Test Item Value Reference Range Comments HIV-1,2 and p24 (test code = CHIV) NON-REACTIVE NON-REACTIVE HEPATITIS C [id number] 16:34:00 Test Item Value Reference Range Comments HCAB (test code = HCAB) NON-REACTIVE NON-REACTIVE HEPATITIS B SURFACE [id number] 16:05:00 Test Item Value Reference Range Comments HBSAG (test code = HBSAG) NON-REACTIVE NON-REACTIVE HEPATITIS A IGM [id number] 07:13:00 Test Item Value Reference Range Comments HEPATITIS A IGM (test code NON-REACTIVE NON-REACTIVE For a dditional information, = [id number]) please refer [email or web address] [email or web address]/faq/F AQ202(This link is being pr ovided for informational/ed ucational purposes only.)T EST PERFORMED AT:[facility] [id number] [place] [address]URZPMRRUFINO IRBY MD HEPATITIS B CORE IgM [id number] 07:12:00 Test Item Value Reference Range Comments HEPATITIS B CORE ANTIBODY NON-REACTIVE NON-REACTIVE TEST P ERFORMED AT:[facility] ([facility]) (test code = DIAGNOST[facility] H [id number]) [place] [address]WDHAZARUFINO IRBY MD COMPREHENSIVE METABOLIC [id number] 12:32:00 Test Item Value Reference Range Comments GLUCOSE (test code = 06D) 55 mg/dL 75-100 SODIUM (test code = 01A) 140 mmol/L 136-145 POTASSIUM (test code = 01B) 4.2 mmol/L 3.6-5.1 CHLORIDE (test code = 04A) 109 mmol/L 98-107 CO2 (test code = 02A) 26 mmol/L 22-32 ANION GAP (test code = ANG) 9.2 mmol/L BUN (test code = 05D) 10 mg/dL 7-18 CREATININE (test code = 03E) 1.0 mg/dL 0.4-1.1 BUN/CREA (test code = BCR) 10 12-20 CALCIUM (test code = 09D) 9.5 mg/dL 8.3-9.5 BILI TOTAL (test code = 11A) 0.3 mg/dL 0.2-1.0 PROTEIN (test code = 07D) 7.9 g/dL 6.4-8.2 ALBUMIN (test code = 08D) 3.4 g/dL 3.5-4.8 GLOBULIN (test code = GLB) 4.5 g/dL 1.5-3.8 ALB/GLOB (test code = AGRR) 0.8 1.0-2.6 ALK PHOS (test code = 35A) 66 IU/L 42-121 AST (test code = 30A) 19 IU/L <=42 ALT (test code = 31A) 15 IU/L <=78 CARCINOEMBRYONIC [id number] 12:06:00 Test Item Value Reference Range Comments CEA (test code = CEA) 16.7 ng/mL 0.0-3.0 CBC (INCLUDES AUTOMATED DIFFERENTIAL)2020-01-11 11:35:00 Test Item Value Reference Range Comments WBC (test code = WBC) 9.3 10\S\3/uL 4.5-11.0 RBC (test code = RBC) 4.03 10\S\6/uL 4.20-5.60 HGB (test code = HBG) 11.0 g/dL 12.0-15.5 HCT (test code = HCT) 35.1 % 35.0-44.0 MCV (test code = MCV) 87.1 fL 81.0-99.0 MCH (test code = MCH) 27.3 pg 27.0-31.0 MCHC (test code = MCHC) 31.3 g/dL 32.0-36.0 RDW (test code = RDW) 14.4 % 11.5-14.5 PLT (test code = PLT) 230 10\S\3/uL 130-400 MPV (test code = MPV) 10.4 fL 9.4-12.4 NEUTROP # (test code = NE#) 6.0 10\S\3/uL 1.6-8.0 LYMPH # (test code = LY#) 2.6 10\S\3/uL 1.1-3.5 MONOCYTE # (test code = MO#) 0.7 10\S\3/uL 0.0-1.1 EOSINOPH # (test code = EO#) 0.0 10\S\3/uL 0.0-0.7 BASOPHIL # (test code = BA#) 0.0 10\S\3/uL 0.0-0.3 IG # (test code = IG#) 0.04 10\S\3/uL 0.00-0.06 NRBC # (test code = NRBC#) 0.00 10\S\3/uL 0.00-0.01 NEUTROPH % (test code = NE%) 64.3 % 35.0-73.0 LYMPH % (test code = LY%) 28.1 % 20.0-55.0 MONO % (test code = MO%) 7.0 % 2.5-10.0 EOSINOPH % (test code = EO%) 0.0 % 0.0-5.0 BASOPHIL % (test code = BA%) 0.2 % 0.0-2.0 IG % (test code = IG%) 0.4 % 0.0-0.8 NRBC% (test code = NRBC%) 0.0 % 0.0-0.2 MANDIFF (test code = MDIFF) NO NO RBC MORPH (test code = RBCMOR) NORMAL Surgical pathology [id number] 10:45:00 Test Item Value Reference Range Comments Surgical pathology study (test see separate pathology report. code = 97882-6) CBC W Auto Differential panel - [id number] 08:50:00 Test Item Value Reference Range Comments white blood count (test code = white blood count) 7.8 K/uL 4.0-11.5 red blood count (test code = red blood count) 3.81 M/uL 3. 80-5.20 hemoglobin (test code = hemoglobin) 10.4 g/dL 10.5-15.7 hematocrit (test code = hematocrit) 34.1 % 34.0-50.0 MCV [Entitic volume] (test code = 32553-7) 89.5 fL 86-10 0 mean corpuscular hemoglobin (test code = mean 27.3 pg 26 .2-33.4 corpuscular hemoglobin) mean corpuscular HGB conc (test code = mean 30.5 g/dL 30-3 4 corpuscular HGB conc) red cell distribution width (test code = red cell 14.3 % 12.0-15.5 distribution width) platelet count (test code = platelet count) 187 K/uL 165- 450 mean platelet volume (test code = mean platelet 10.6 fL 9.4-12.6 volume) Segmented neutrophils/100 leukocytes in Blood 70.5 % 44 .4-80.1 (test code = 06733-8) Immature granulocytes [#/volume] in Blood (test 0.0 K/uL 0.0-0.03 code = 17398-1) lymphocyte% (test code = lymphocyte%) 21.5 % 10.0-50.0 mono % (test code = mono %) 5.4 % 3.6-12.0 eos % (test code = eos %) 1.7 % 0.0-5.4 Basophils/100 leukocytes in Unspecified specimen 0.4 % 0.1-1.2 (test code = 45226-7) Band form neutrophils [#/volume] in Blood (test 5.49 K/uL 1.56-6.13 code = 46908-2) Lymphocytes [#/volume] in Unspecified specimen by 1.7 K/uL 1.18-3.74 Automated count (test code = 49105-8) mono # (test code = mono #) 0.42 K/uL 0.24-0.86 eos # (test code = eos #) 0.13 K/uL 0.04-0.36 basophil # (test code = basophil #) 0.03 K/uL 0.01-0.08 NRBC% (test code = NRBC%) 0 /100 WBC 0-0.2 NRBC# (test code = NRBC#) 0 K/uL Differential panel, method unspecified - [id number] 08:50:00 NeutrophilsBandLymphocyteAtypical LymphMonocyteBasophilPlatelet EstimateDifferential comment-PComprehensive metabolic 2000 panel - Serum or [id number] 08:50:00 Test Item Value Reference Range Comments Glucose [Mass/volume] in Serum or Plasma (test 140 mg/dL 8 2-115 code = 2345-7) Urea nitrogen [Mass/volume] in Serum or Plasma 13 mg/dL 8 -23 (test code = 3094-0) osmolality calculated,serum (test code = 280 mOsm/kg 280-300 osmolality calculated,serum) creatinine (test code = creatinine) 1.1 mg/dL 0.50-0.90 glomerular filtration rate (test code = 50.01 glomerular filtration rate) Urea nitrogen/Creatinine [Mass Ratio] in Serum 11.8 1 2-20 or Plasma (test code = 3097-3) sodium level (test code = sodium level) 139 mmol/L 135-145 potassium level (test code = potassium level) 4.6 mmol/L 3. 5-5.2 chloride level (test code = chloride level) 101 mmol/L 98-1 08 CO2 (test code = CO2) 25 mmol/L 21-32 anion gap (test code = anion gap) 17.6 mEq/L 12-20 calcium level (test code = calcium level) 9.4 mg/dL 8.8-10 .2 total protein (test code = total protein) 7.2 g/dL 6.6-8. 7 albumin (test code = albumin) 3.9 g/dL 3.5-5.2 globulin (test code = globulin) 3.3 gm/dL A/G ratio (test code = A/G ratio) 1.2 >1.0 bilirubin,total (test code = bilirubin,total) 0.4 mg/dL 0. 0-1.2 AST/SGOT (test code = AST/SGOT) 13 U/L 15-32 Alanine aminotransferase [Enzymatic 8 U/L 0-33 activity/volume] in Serum or Plasma (test code = 1742-6) Alkaline phosphatase [Enzymatic activity/volume] 69 U/L 35-105 in Serum or Plasma (test code = 6768-6) [id number] 08:50:00 Test Item Value Reference Range Comments cea (test code = cea) 13.53 0-4.7 Hemoglobin A1c [Mass/volume] in [id number] 06:09:00 Test Item Value Reference Range Comments Hemoglobin A1c [Mass/volume] in Blood (test code = 7.4 % 4.0-6.0 81482-0) Thyrotropin [Units/volume] in Serum or [id number] 06:09:00 Test Item Value Reference Range Comments Thyrotropin [Units/volume] in Serum or Plasma 0.71 uIU/mL 0. 36-3.74 (test code = 3016-3) Comprehensive metabolic 2000 panel - Serum or [id number] 06:09:00 Test Item Value Reference Range Comments Glucose [Mass/volume] in Serum or Plasma (test 167 mg/dL 8 2-115 code = 2345-7) Urea nitrogen [Mass/volume] in Serum or Plasma 14 mg/dL 8 -23 (test code = 3094-0) osmolality calculated, serum (test code = 289 280-30 0 osmolality calculated, serum) creatinine (test code = creatinine) 1.0 mg/dL 0.50-0.90 glomerular filtration rate (test code = 55.82 glomerular filtration rate) Urea nitrogen/Creatinine [Mass Ratio] in Serum or 14.0 12-20 Plasma (test code = 3097-3) sodium level (test code = sodium level) 143 mmol/L 135-145 potassium level (test code = potassium level) 4.5 mmol/L 3. 5-5.2 chloride level (test code = chloride level) 106 mmol/L 98-1 08 CO2 (test code = CO2) 24 mmol/L 21-32 anion gap (test code = anion gap) 17.5 mEq/L 12-20 calcium level (test code = calcium level) 9.2 mg/dL 8.8-10 .2 total protein (test code = total protein) 7.2 g/dL 6.6-8. 7 albumin (test code = albumin) 3.9 g/dL 3.5-5.2 globulin (test code = globulin) 3.3 gm/dL A/G ratio (test code = A/G ratio) 1.2 >1.0 bilirubin,total (test code = bilirubin,total) 0.4 mg/dL 0. 0-1.2 AST/SGOT (test code = AST/SGOT) 17 U/L 15-32 Alanine aminotransferase [Enzymatic 12 U/L 0-33 activity/volume] in Serum or Plasma (test code = 1742-6) Alkaline phosphatase [Enzymatic activity/volume] 64 U/L 35-105 in Serum or Plasma (test code = 6768-6) Lipid 1995 panel - Serum or [id number] 06:09:00 Test Item Value Reference Range Comments cholesterol level (test code = cholesterol level) 127 mg/dL 150-200 triglycerides level (test code = triglycerides 196 mg/dL < 150 level) HDL cholesterol (test code = HDL cholesterol) 33 mg/dL >6 5 LDL cholesterol direct (test code = LDL 73 mg/dL <100 cholesterol direct) cholesterol risk ratio (test code = cholesterol 3.848 risk ratio) Hemoglobin A1c [Mass/volume] in [id number] 07:11:00 Test Item Value Reference Range Comments Deprecated Hemoglobin A1c in Blood (test code = 7.3 % 4.0-6.0 11571-8) Microalbumin [Mass/volume] in [id number] 07:11:00 Test Item Value Reference Range Comments microalbumin random (test code = microalbumin random) <12.0 0-20 Comprehensive metabolic 2000 panel - Serum or [id number] 07:11:00 Test Item Value Reference Range Comments Glucose [Mass/volume] in Serum or Plasma (test 327 mg/dL 8 2-115 code = 2345-7) Urea nitrogen [Mass/volume] in Serum or Plasma 12 mg/dL 8 -23 (test code = 3094-0) Osmolality of Serum or Plasma (test code = 290 280-3 00 2692-2) creatinine (test code = creatinine) 1.1 mg/dL 0.50-0.90 glomerular filtration rate (test code = 50.17 glomerular filtration rate) Urea nitrogen/Creatinine [Mass Ratio] in Serum or 10.9 12-20 Plasma (test code = 3097-3) sodium level (test code = sodium level) 139 mmol/L 135-145 potassium level (test code = potassium level) 4.3 mmol/L 3. 5-5.2 chloride level (test code = chloride level) 99 mmol/L 98-1 08 CO2 (test code = CO2) 23 mmol/L 21-32 anion gap (test code = anion gap) 21.3 mEq/L 12-20 calcium level (test code = calcium level) 9.2 mg/dL 8.8-10 .2 total protein (test code = total protein) 6.8 g/dL 6.6-8. 7 albumin (test code = albumin) 3.6 g/dL 3.5-5.2 globulin (test code = globulin) 3.2 gm/dL A/G ratio (test code = A/G ratio) 1.1 >1.0 bilirubin,total (test code = bilirubin,total) 0.4 mg/dL 0. 0-1.2 AST/SGOT (test code = AST/SGOT) 17 U/L 15-32 Alanine aminotransferase [Enzymatic 11 U/L 0-33 activity/volume] in Serum or Plasma (test code = 1742-6) Alkaline phosphatase [Enzymatic activity/volume] 69 U/L 35-105 in Serum or Plasma (test code = 6768-6) Lipid 1996 panel - Serum or [id number] 07:11:00 Test Item Value Reference Range Comments cholesterol level (test code = cholesterol level) 153 mg/dL 150-200 triglycerides level (test code = triglycerides 185 mg/dL < 150 level) HDL cholesterol (test code = HDL cholesterol) 39 mg/dL >6 5 LDL cholesterol direct (test code = LDL 107 mg/dL <100 cholesterol direct) cholesterol risk ratio (test code = cholesterol 3.923 risk ratio) Thyrotropin [Units/volume] in Serum or [id number] 07:11:00 Test Item Value Reference Range Comments Thyrotropin [Units/volume] in Serum or Plasma 0.60 uIU/mL 0. 36-3.74 (test code = 3016-3) CBC W Auto Differential panel - [id number] 09:23:00 Test Item Value Reference Range Comments white blood count (test code = white blood count) 5.6 K/uL 4.0-11.5 red blood count (test code = red blood count) 4.13 M/uL 3. 80-5.20 Hemoglobin [Mass/volume] in Blood (test code = 11.8 g/dL 1 0.5-15.7 718-7) hematocrit (test code = hematocrit) 36.3 % 34.0-50.0 MCV [Entitic volume] (test code = 03509-2) 87.8 fL 78-98 MCH [Entitic mass] (test code = 24610-0) 28.5 pg 26.2-33 .4 mean corpuscular HGB conc (test code = mean 32.5 g/dL 31.5 -36.2 corpuscular HGB conc) red cell distribution width (test code = red cell 14.9 % 11.5-15.5 distribution width) Platelets [#/volume] in Blood (test code = 148 K/uL 137-3 38 66492-0) Platelet mean volume [Entitic volume] in Blood 8.8 fL 8 .4-11.8 (test code = 96503-0) Band form neutrophils/100 leukocytes in Blood 66.1 % 44 .4-80.1 (test code = 91920-8) Lymphocytes/100 leukocytes in Body fluid (test 26.9 % 1 0.0-50.0 code = 82426-5) Monocytes/100 leukocytes in Blood by Automated 5.7 % 3 .6-12.04 count (test code = 5905-5) Eosinophils/100 leukocytes in Blood by Automated 0.6 % 0.0-5.41 count (test code = 713-8) Basophils/100 leukocytes in Blood by Automated 0.7 % 0 .0-0.79 count (test code = 706-2) Differential panel, method unspecified - [id number] 09:23:00 NeutrophilsBandLymphocyteAtypical LymphMonocyteEosinophilBasophilPlatelet EstimatePlatelet MorphologyHypochromasiaAnisocytosisMicrocytosisToxic GranulationHypersegmented PolysRouleauToxic VacuolationGiant PlateletsHemoglobin A1c [Mass/volume] in [id number] 09:23:00 Test Item Value Reference Range Comments Deprecated Hemoglobin A1c in Blood (test code = 6.0 % 4.0-6.0 91463-3) Comprehensive metabolic 2000 panel - Serum or [id number] 09:23:00 Test Item Value Reference Range Comments Glucose [Mass/volume] in Serum or Plasma (test 100 mg/dL 8 2-115 code = 2345-7) Urea nitrogen [Mass/volume] in Serum or Plasma 14 mg/dL 8 -23 (test code = 3094-0) Osmolality of Serum or Plasma (test code = 286 280-3 00 2692-2) creatinine (test code = creatinine) 1.1 mg/dL 0.50-0.90 glomerular filtration rate (test code = 50.17 glomerular filtration rate) Urea nitrogen/Creatinine [Mass Ratio] in Serum or 12.7 12-20 Plasma (test code = 3097-3) sodium level (test code = sodium level) 143 mmol/L 135-145 potassium level (test code = potassium level) 4.7 mmol/L 3. 5-5.2 chloride level (test code = chloride level) 106 mmol/L 98-1 08 CO2 (test code = CO2) 26 mmol/L 21-32 anion gap (test code = anion gap) 15.7 mEq/L 12-20 calcium level (test code = calcium level) 9.4 mg/dL 8.8-10 .2 total protein (test code = total protein) 7.3 g/dL 6.6-8. 7 albumin (test code = albumin) 3.9 g/dL 3.5-5.2 globulin (test code = globulin) 3.4 gm/dL A/G ratio (test code = A/G ratio) 1.1 >1.0 bilirubin,total (test code = bilirubin,total) 0.3 mg/dL 0. 0-1.2 AST/SGOT (test code = AST/SGOT) 19 U/L 15-32 Alanine aminotransferase [Enzymatic 10 U/L 0-33 activity/volume] in Serum or Plasma (test code = 1742-6) Alkaline phosphatase [Enzymatic activity/volume] 72 U/L 35-105 in Serum or Plasma (test code = 6768-6) Lipid 1996 panel - Serum or [id number] 09:23:00 Test Item Value Reference Range Comments cholesterol level (test code = cholesterol level) 164 mg/dL 150-200 triglycerides level (test code = triglycerides 162 mg/dL < 150 level) HDL cholesterol (test code = HDL cholesterol) 42 mg/dL >6 5 LDL cholesterol direct (test code = LDL 110 mg/dL <100 cholesterol direct) cholesterol risk ratio (test code = cholesterol 3.904 risk ratio) Microalbumin [Mass/volume] in [id number] 09:23:00 Test Item Value Reference Range Comments microalbumin random (test code = microalbumin random) <12.0 0-20
[2020-04-10 15:16] VITALS: BP 117/54; TEMP 98.5; O2SAT 96; BMI 38.0
[2020-04-10 16:37] LABS: Hematocrit 28.8 % (36.0-45.0)
== END ==
LOC: DS 08:00
PROVIDERS: ATTEND Internal Medicine Medical Oncology
DX: D64.81 Anemia due to antineoplastic chemotherapy (principal); C21.8 Malignant neoplasm of overlapping sites of rectum, anus and anal canal
CPT/HCPCS: 36415; 86900; 86850; 86901; 85018; 85014; 36430; P9016 ×2; J7030 ×2

== ENCOUNTER 2020-05-11 06:21 | Day surgery (SDC) | payer OTHER ==
[2020-05-07 16:44] LABS: Absolute Lymphocytes (CBC) 0.6 K/uL (0.7-4.9); Basophils % 0.5 % (0-1.3); Hematocrit 30.2 % (36.0-45.0); MPV 7.9 fL (7.6-11.3); RBC Red Blood Cell Count 3.27 M/uL (3.86-4.86)
--- OUTSIDE RECORDS SUMMARY | 2020-05-11 06:26 | XMS REPORT | Continuity of Care Document ---
:1955 Author Organization [facility] Information [employer] Care Team Providers Name Role Phone [facility] [employer] Unavailable Un available Problems Problem Status Onset Classification Date Comments Sourc e Date Reported R10.32 - LEFT LOWER Active [facility] QUADRANT PAIN 016 [place] HYPERTENSION Active Condition 07/19/2015 015 [facility] OBESITY Active Condition 07/19/2015 014 [facility] Group OTITIS MEDIA Inactive Condition 07/19/2015 014 [facility] Group LOWER BACK PAIN Active Condition 07/19/2015 014 Medical Group Chronic low back pain Active Problem 01/01/2020 Data MH (disorder) 014 migrated Medical from [employer], [facility] OPID on 04/28/15. [place] Obesity (disorder) Active Problem 08/01/2016 Data OPID 014 migrated Sugar from [employer] on 04/28/15. Otitis media Resolved Problem 08/01/2016 Data migrate d from [employer] on 06/16/15. OPID (disorder) 014 Data migrated from [employer] on 06/15/15. [place] DRY SKIN Active Condition 07/19/2015 014 Medical Group OVERACTIVE BLADDER Active Condition 07/19/2015 014 Medical Group Bladder muscle Active Problem 01/01/2020 Data dysfunction - 014 migrated Medica l overactive (disorder) from [employer], [facility] on 04/28/15. [place] Dry skin (finding) Active Problem 08/01/2016 Data [...] Data neuropathy (disorder) 014 migrated Medical from [facility], [facility] OPID on 04/28/15. [place] SCABIES Inactive Condition 07/19/2015 014 Medical Group ECZEMA, ATOPIC Inactive Condition 07/19/2015 013 Medical Group NEED PROPHYLACTIC Inactive Condition 07/19/2015 M H VACCINATION&INOCULATIO 013 Medical N FLU Group URINARY TRACT Inactive Condition 07/19/2015 INFECTION 013 Medical Group ACUTE SINUSITIS, Inactive Condition 07/19/2015 UNSPECIFIED 013 Medical Group Acute sinusitis Resolved Problem 08/01/2016 [facility] 06[facility]16/15. [facility] (disorder) 013 [facility] from [facility] 06/15/15. [place] Urinary tract Resolved Problem 08/01/2016 Data migrat [facility] from [facility] on 06/16/15. [facility] infectious disease 013 Data migrat [facility] from [facility] on 06/15/15. 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 Medications Medication Details Route Status Patient Ordering Order Source Instructions Provider Date simvastatin 40 = 1 tab, PO, Active MH mg oral tablet Daily, # 90 019 Medic al ea, Refill(s) Group 3, Pharmacy: [facility] Metformin = 1 tab, PO, Active MH hydrochloride BID, # 60 ea, 019 Medi nicholas 1000 MG Oral 0 Refill(s), Group Tablet Pharmacy: [facility] 3 ML insulin 24 unit, Active detemir 100 SUB-Q, BID, # 018 Medica l UNT/ML Prefilled 45 mL, 1 Group Syringe Refill(s), [Levemir] Pharmacy: [facility] 3 ML insulin 15 unit, Active detemir 100 SUB-Q, Daily, 018 Medica l UNT/ML Prefilled increase by 2 G roup Syringe units every 2 [Levemir] days until fasting glucose 100-130, # 15 mL, 5 Refill(s), Pharmacy: [facility] DULoxetine 60 mg 60 mg = 1 cap, Active MH oral delayed PO, Daily, # 018 Medica l release capsule 90 cap, 1 Group Refill(s), Pharmacy: [facility] simvastatin 40 See Active MH mg oral tablet Instructions, 018 Med ical # 90 ea, Group Refill(s) 3, TAKE ONE (1) TABLET(S) BY MOUTH ONCE A DAY., Pharmacy: [facility] gabapentin 300 See Active MH MG Oral Capsule Instructions, 018 Me dical # 90 ea, Group Refill(s) 5, TAKE ONE (1) CAPSULE(S) BY MOUTH THREE TIMES A DAY., Pharmacy: [facility] tramadol 50 mg = 1 tab, Active MH hydrochloride 50 PO, BID, PRN 017 Me dical MG Oral Tablet pain, [facility], # 180 tab, 1 Refill(s) gabapentin 300 See Active MH MG Oral Capsule Instructions, 017 Me dical # 90 ea, TAKE Group ONE (1) CAPSULE(S) BY MOUTH THREE TIMES A DAY., Pharmacy: [facility] VICTOZA 18 1.2 mg Active MH MG/3ML [...] Medical vaccine, 5 Deltoid NDC# Group inactivated<sup> [id number] 1</sup> influenza virus Left completed Abner Result Comment : OPID vaccine, 5 Deltoid NDC# [place] inactivated<sup> [id number] 2</sup> influenza completed Medical immunization 4 Group (Flu Vax) has been administered Hx influenza Left completed GE Result Comment: M H Medical vaccine-unspecif 4 Deltoid fluzone Brady up ied<sup>3</sup> (quadrivalent) no preservative (>3 yrs.) [[id number]]. Migrated from OBS ; Data migrated from [employer] on 01/02/2016. Hx influenza Left completed GE Result Comment: M H OPID vaccine-unspecif 4 Deltoid fluzone [place] ied<sup>1</sup> (quadrivalent) no preservative (>3 yrs.) [[id number]]. Migrated from OBS ; Data migrated from [employer] on 01/02/2016. influenza completed Medical immunization 3 Group (Flu Vax) has been administered pneumococcal completed [facility] nicholas immunization 3 Group administered pneumococcal Right completed GE Result Comment: M H Medical 23-valent 3 Deltoid pneumovax 23 Group,M H vaccine<sup>4</s [cvx33]. OPI D [place] up> Migrated from Land OBS VIS: Pneumovax 23: ; Data migrated from [employer] on 01/02/2016. influenza virus Left completed GE Result Comment : Medical vaccine, 3 Deltoid fluzone (>3 Group inactivated<sup> yrs.) [[id number] ]. 2</sup> Migrated from OBS ; Data migrated from [employer] on 01/02/2016. influenza virus Left completed GE Result Comment : OPID vaccine, 3 Deltoid fluzone (>3 [place] inactivated<sup> yrs.) [[id number] ]. 3</sup> Migrated from OBS ; Data migrated from [employer] on 01/02/2016. Results Order Name Results Value [...] pain x 3 months/no tra arturo 03/08/2018 [facility] Comparison: None FINDINGS: The PA and lateral views of the right wr ist show no fractures or dislocations. Normal bony alignment. There are no radio-opaque foreign bodies. If there is further concern, followup radiographs or MRI of the wrist may be performed for complete assessment. IMPRESSION: 1. No acute fracture or dislocation injury of t he right wrist . SL: [id number] Abdomen/Pelvis w/wo CT OF ABDOMEN AND PELVIS WIT H AND WITHOUT IV CONTRAST, 07/29/2016 07/29/2016 OPID [place] IV contrast CT HISTORY: Left lower quadrant [...] Type Number For Provider Date Date Visit [facility] Lab Report [id number] Arnulfo 08/28 08/28 [place] [facility] [address] [facility] [place] an[place]io Wilson MD Group Internal Medicine [facility] Lab Report [id number] Arnulfo 08/28 08/28 [place] [facility] [address] [facility] [place] Wilson MD Group Internal Medicine [facility] Office [id number] Arnulfo 11/20 11/20 [place] Visit [address] [facility] [place] an[place]io Wilson MD Group Internal Medicine [facility] Office [id number] Arnulfo 04/06 04/06 [place] Visit [address] [facility] [place] an[place]io Wilson MD Group Internal Medicine [facility] Lab Report [id number] Arnulfo 04/06 04/06 [place] [address] [facility] [place] an[place]io Wilson MD Group Internal Medicine [facility] [place] Office [id number] Arnulfo 07/19 07/19 [place] Visit [address] [facility] [place] an[place] Wilson MD Group Internal Medicine [facility] Lab Report [id number] 07/19 [place] [facility] [address] [facility] [place] an[place] Wilson MD Group Internal Medicine Outpatient [id number] 07/19 Activ e [facility] [place] Outpatient [id number] 10/19 Activ e [facility] [place] Outpatient [id number] ARNULFO 12/17 Activ e [facility] [place] Outpatient [id number] ARNULFO 05/06 Activ e [facility] Matthew Outpatient [id number] ARNULFO 06/16 Activ e [facility] Matthew Outpatient [id number] ARNULFO 07/25 Activ e [facility] [id number] Arnulfo 07/29 07/30 [facility] Outpatient Services [facility] /2015 [facility] [place] Outpatient [id number] JUANA 07/31 Active [facility] CHANCE /2015 [place] Outpatient [id number] ARNULFO 08/21 Activ e [facility] Matthew Outpatient [id number] ARNULFO 10/28 Activ e [facility] [place] Outpatient [id number] ARNULFO 02/25 Activ e [facility] /2016 Matthew Outpatient [id number] ARNULFO 06/24 Activ e [facility] /2016 [place] Outpatient [id number] [place] 07/02 Active [facility] BRYANNA /2016 [facility] Outpatient [id number] NUCLEAR 07/23 Active [facility] VISIT /2016 [place] Outpatient [id number] DOPPLER 07/27 Active Memorial VISIT /2016 [facility] Outpatient [id number] DOPPLER 08/10 Active [facility] VISIT /2016 [place] Outpatient [id number] DOPPLER 08/10 Active [facility] VISIT /2016 [place] Outpatient [id number] SELENE 09/03 Active [facility] BRYANNA /2016 [facility] Outpatient [id number] DOPPLER 09/10 Active [facility] VISIT /2016 [facility] Outpatient [id number] ARNULFO 10/28 Activ e [facility] [id number] 11/03 11/05 Medicine Message /2016 Medical [facility] Outpatient [id number] ARNULFO 11/09 Activ e [facility] Matthew MG Outpatient [id number] Arnulfo 11/09 11/10 Internal [facility] /2016 Medic al Medicine Group Wilson MG Phone [id number] 11/16 11/18 Internal Message /2016 Medical [facility] Steve MG Phone [id number] 12/01 12/03 Internal Message /2017 Medical [facility] Steve MG Family Phone [id number] 12/14 12/16 MH Medicine Message /2017 Medical [facility] Outpatient [id number] ARNULFO 03/08 Activ e [facility] [place] Outpatient [id number] XRAY [facility]ISIT 03/[facility] [id number] Arnulfo 03/08 03/09 Internal [facility] /2017 Medic al Medicine Group Steve MG Outpatient [id number] NURSE 03/08 03/09 MH Radiology VISIT /2017 Medical [facility] Outpatient [id number] JEAN 05/19 Active [facility] [place] MG Ambulatory [id number] Jean 05/19 05/19 Internal Pre-Reg Wolf /2017 [facility] Outpatient [id number] ARNULFO 05/31 Activ e [facility] [place] MG Outpatient [id number] Arnulfo 05/31 06/01 Internal [facility] /2017 Medic al Medicine Group Steve MG Outside [id number] 06/15 06/17 Cardiology Medical /2017 Medic al [employer] [facility] Outpatient [id number] NADIM 06/30 Active [facility] [place] MG Outpatient [id number] Nadim 06/30 07/01 Gastroenter Torey /2017 Medic al ology Group [facility] Outpatient [id number] LAB VISIT 07/05 [facility] [place] MG Ambulatory [id number] Arnulfo 07/05 07/06 Internal Pre-Reg [facility] Medi nicholas Medicine Group [facility] Outpatient [id number] ARNULFO 07/12 Activ e [facility] Matthew MG Ambulatory [id number] Arnulfo 07/12 07/12 Internal Pre-Reg [facility] Medi nicholas Medicine Group [facility] Outpatient [id number] ARNULFO 07/26 Activ e [facility] Matthew MG Outpatient [id number] Arnulfo 07/26 07/27 Internal [facility] /2017 Medic al Medicine Group Steve MG Phone [id number] 07/28 07/30 Gastroenter Message /2017 Medi nicholas ology Group [facility] Outside [id number] 08/14 08/16 Gastroenter Medical /2017 [facility] ology [facility] Between [id number] 03/28 03/29 Internal Visit /2018 Medical Medicine Group Steve [facility] Phone [id number] 12/28 12/30 Internal Message /2019 [facility] Procedures Procedure Code Date Perfomer Comments Source Mammogram<sup>1</sup> [id number] negative, Medical 8 [facility] Colonoscopy<sup>1</mcmanus [id number] hemorrhoids Medical p> 6 Group Colonoscopy<sup>2</mcmanus [id number] hemorrhoids Medical p> 6 Group diabetic foot check [id number] yes [facility] dical 4 Group mammogram 41834 Normal Bilateral Medic al 2 Group colonoscopy 33665 Normal Medical 2 Group Cholecystectomy [id number] Medica l Group, OPID [place] Hysterectomy [id number] Medical Group, OPID [place] Assessment and Plan No Data Provided for [...] at age: 42; 2 entered on: 07/26/18 [id number] smoke about 3 packs a day. Social [...]
--- OUTSIDE RECORDS SUMMARY | 2020-05-11 06:30 | XMS REPORT | Continuity of Care Document ---
:1955 Author Organization [facility] t Address [address] [place] [address] Care Team Providers Name Role Phone DR Ryan HERNANDEZ Attending Clinician Unavailable Henry Andrade Attending Clinician Bhavin Lema Attending Clinician Maryann Attending Clinician VISIT, STRB XRAY Attending Clinician Unavailable DR Ryan HERNANDEZ Admitting Clinician Unavailable Problems Condition Condition Condition Status Onset Resolution Last Treating Co mments Source Name Details Category Date Date Treatment Clinician Date R10.32 - Diagnosis Active 2017-06-11 M emoria LEFT LOWER 07-25 15:04:00 l QUADRANT R10.32 - 00:01: Herm tang PAIN LEFT LOWER 00 QUADRANT PAIN Active 07/25/2016 [facility] [place] HYPERTENSI Condition Active 2015-07-19 Memoria ON 04-06 13:58:00 l 00:00: Matthew HYPERTENSI 00 ON Active 5 Condition 07/19/2015 Medical Group OBESITY Condition Active 2013-112015-07-19 Me moria 01-21 13:58:00 l OBESITY 00:00: [place] 00 Active 11/20/2014 Condition 5 [facility] Group LOWER BACK Condition Active 2013-112015-07-19 Memoria PAIN - 13:58:00 l LOWER 00:00: [place] BACK PAIN 00 Active 11/20/2014 Condition 5 [facility] Chronic Problem Active 2013-112020-01-01 Mike juliano low back - 00:56:26 l pain Chronic 00:00: Matthew (disorder) low back 00 pain (disorder) Active 11/20/2014 Problem 01/01/2020 Data migrated from [employer] on 04/28/15. [facility] [place] Obesity Problem Active 2013-112016-08-01 Mike juliano (disorder) - 02:08:18 l Obesity 00:00: [place] (disorder) 00 Active 11/20/2014 Problem 08/01/2016 Data migrated from [employer] on 04/28/15. [facility] [place] DRY SKIN Condition Active 2015-07-19 M emoria 08-28 13:58:00 l DRY SKIN 00:00: Yemi n 00 Active 08/28/2014 Condition 5 Medical Group OVERACTIVE Condition Active 2015-07-19 Memoria BLADDER 08-28 13:58:00 l 00:00: [place] OVERACTIVE 00 BLADDER Active 08/28/2014 Condition 5 [facility] Bladder Problem Active 2020-01-01 Mike juliano muscle 08-28 00:56:26 l dysfunctio Bladder 00:00: Her house n - muscle 00 overactive dysfunctio (disorder) n - overactive (disorder) Active 08/28/2014 Problem 01/01/2020 Data migrated from [employer] on 04/28/15. [facility] [place] Dry skin Problem Active 2016-08-01 Mem oria (finding) 08-28 02:08:18 l Dry skin 00:00: Yemi n (finding) 00 Active 08/28/2014 Problem 08/01/2016 Data migrated from [employer] on 04/28/15. [facility] [place] PLANTAR Condition Active 2015-07-19 Me moria FASCIITIS 05-19 13:58:00 l PLANTAR 00:00: [place] FASCIITIS 00 Active 05/19/2014 Condition 5 Medical Group ACHILLES Condition Active 2015-07-19 M emoria BURSITIS - 13:58:00 l OR ACHILLES 00:00: Yemi n TENDINITIS BURSITIS 00 OR TENDINITIS Active 05/19/2014 Condition 5 Medical Group Achilles Problem Active 2016-08-01 Mem oria tendinitis - 02:08:18 l (disorder) Achilles 00:00: He rmann tendinitis 00 (disorder) Active 05/19/2014 Problem 08/01/2016 Data migrated from [employer] on 04/28/15. [facility] [place] Plantar Problem Active 2016-08-01 Mike juliano fasciitis 6- 02:08:18 l (disorder) Plantar 00:00: Her house fasciitis 00 (disorder) Active 05/19/2014 Problem 08/01/2016 Data migrated from [employer] on 04/28/15. [facility] [place] METATARSAL Condition Active 2015-07-19 Memoria DORIS 6-06 13:58:00 l 00:00: Matthew METATARSAL 00 DORIS Active 05/05/2014 Condition 5 Medical Group Metatarsal Problem Active 2016-08-01 M emoria doris 6-06 02:08:18 l (finding) 00:00: Matthew Metatarsal 00 doris (finding) Active 05/05/2014 Problem 08/01/2016 Data migrated from [employer] on 04/28/15. [facility] [place] ELEVATED Condition Active 2015-07-19 M emoria BLOOD 4-28 13:58:00 l PRESSURE ELEVATED 00:00: Herm tang BLOOD 00 PRESSURE Active 03/27/2014 Condition 5 Medical Group PERIPHERAL Condition Active 2015-07-19 Memoria NEUROPATHY 4-28 13:58:00 l 00:00: Matthew PERIPHERAL 00 NEUROPATHY Active 03/27/2014 Condition 5 Medical Group Diabetic Problem Active 2020-01-01 Mem oria peripheral 4- 00:56:26 l neuropathy Diabetic 00:00: He rmann (disorder) peripheral 00 neuropathy (disorder) Active 03/27/2014 Problem 01/01/2020 Data migrated from [employer] on 04/28/15. Medical Group, [facility] [place] EDEMA Condition Active 2012-112015-07-19 Mem oria 0-01 13:58:00 l EDEMA 00:00: Matthew 00 Active 08/30/2013 Condition 5 Medical Group Edema Problem Active 2012-112016-08-01 Memor ia (finding) 0- 02:08:18 l Edema 00:00: Matthew (finding) 00 Active 08/30/2013 Problem 08/01/2016 Data migrated from [employer] on 04/28/15. [facility] [place] DIABETES Condition Active 2015-07-19 M emoria MELLITUS, 13:58:00 l TYPE II, DIABETES Herm tang WITH MELLITUS, NEUROLOGIC TYPE II, AL WITH COMPLICATI NEUROLOGIC ONS AL COMPLICATI ONS Active Condition 07/19/2015 Medical Group HYPERCHOLE Condition Active 2015-07-19 Memoria STEROLEMIA 13:58:00 l [place] HYPERCHOLE STEROLEMIA Active Condition 07/19/2015 Medical Group Hyperchole Problem Active 2020-01-01 M emoria sterolemia 00:56:26 l (disorder) Yemi n Hyperchole sterolemia (disorder) Active Problem 01/01/2020 Medical [facility], [facility] [place] Morbid Problem Active 2020-01-01 Memor ia obesity 00:56:26 l (disorder) Morbid Herm tang obesity (disorder) Active Problem 01/01/2020 Medical [facility] [place] Diabetic Problem Active 2016-08-01 Mem oria peripheral 02:08:18 l neuropathy Diabetic He rmann 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 [facility] [place] Allergies, Adverse Reactions, Alerts Allergy Allergy Status Severity Reaction(s) Onset Inactive Treating Comm ents Source Name Type Date Date Clinician No Known No Known Active Memori a Medicati Medicati l on on Matthew Allergie Allergie s s Social History Social Habit Start Date Stop Date Quantity Comments Source Social History 2017-07-02 2017-07-02 [facility] socrates 13:35:41 13:35:41 Smoking Status Start Date Stop Date Source Former Smoker [facility] Social History [facility] Medications Ordered Filled Start Stop Current Ordering Indication Dosage Frequency Signature Comments Components Source Medication Medication Date Date Medication? Clinician (SIG) Name Name simvastatin Yes = 1 tab, Me moria 40 mg oral 1-28 PO, Daily, l tablet 15:16: # 90 Matthew connor 44 Refill(s) 3, Pharmacy: [facility] [place] Metformin Yes = 1 tab, Mike juliano hydrochlori 1-08 PO, BID, # l de 1000 MG 16:53: 60 ea, 0 house Oral Tablet 21 Refill(s), Pharmacy: [facility] 3 ML Yes 24 unit, Memoria insulin 8-27 SUB-Q, l detemir 100 15:46: BID, # 45 H ermann UNT/ML 43 mL, 1 Prefilled Refill(s), Syringe Pharmacy: [Levemir] [facility] 3 ML Yes 15 unit, Memoria insulin 7-02 SUB-Q, l detemir 100 19:52: Daily, Herm tang UNT/ML 00 increase Prefilled by 2 units Syringe every 2 [[facility]] days until fasting glucose 100-130, # 15 mL, 5 Refill(s), Pharmacy: [facility] DULoxetine Yes 60 mg = 1 Me moria 60 mg oral 4-12 cap, PO, l delayed 12:51: Daily, # Yemi n release 00 90 cap, 1 capsule Refill(s), Pharmacy: [facility] simvastatin Yes See Memori a 40 mg oral 1-15 Instructio l tablet 14:55: ns, # 90 Matthew 34 ea, Refill(s) 3, TAKE ONE (1) TABLET(S) BY MOUTH ONCE A DAY., Pharmacy: [facility] gabapentin Yes See Memoria 300 MG Oral 1-03 Instructio l Capsule 13:55: ns, # 90 Yemi n 44 ea, Refill(s) 5, TAKE ONE (1) CAPSULE(S) BY MOUTH THREE TIMES A DAY., Pharmacy: [facility] tramadol 2016-11 Yes 50 mg = 1 Mike juliano hydrochlori 2-18 tab, PO, l de 50 MG 16:19: BID, PRN Marilu nn Oral Tablet 00 pain, [facility], # 180 tab, 1 Refill(s) gabapentin 2016-11 Yes See Memoria 300 MG Oral 2-05 Instructio l Capsule 18:05: ns, # 90 Yemi n 06 ea, TAKE ONE (1) CAPSULE(S) BY MOUTH THREE TIMES A DAY., Pharmacy: [facility] VICTOZA 18 Yes 1.2 mg Memor ia MG/3ML SOLN 8-20 Subcutanou l 00:00: s daily Matthew 00 NOVOTWIST Yes Use as Memori a 32G X 5 MM 8-20 directed l MISC 00:00: daily [place] 00 METANX Yes one by Memoria 3-90.314-2- 8-20 mouth l 35 MG CAPS 00:00: twice Yemi n 00 daily TYLENOL Yes One po prn Mike juliano WITH 5-08 l CODEINE #3 00:00: Matthew 300-30 MG 00 TABS CIPRODEX 2013-11 No prn Memoria 0.3-0.1 % 2-22 l SUSP 00:00: Matthew AUGMENTIN 2013-11 No one by Memori a 875-125 MG 2-22 mouth l TABS 00:00: twice Matthew 00 daily with food CIPRODEX 2013-11 No prn Memoria 0.3-0.1 % 2-22 l SUSP 00:00: [place] 00 VESICARE 5 No 1 tablet Mem oria MG TABS 9-29 daily l 00:00: TRIAMCINOLO No Apply to Me moria NE 9-29 affected l ACETONIDE 00:00: areas Matthew 0.1 % CREA 00 twice a day VESICARE 5 No 1 tablet Mem oria MG TABS 9-29 daily l 00:00: Matthew 00 LYRICA 75 Yes one po Memori a MG CAPS 4-28 twice l 00:00: daily [place] LYRICA 75 Yes one po Memori a MG CAPS 4-28 twice l 00:00: daily [place] LYRICA 75 Yes takes 2 Memor ia MG CAPS 4-28 capsules l 00:00: twice Matthew 00 daily PERMETHRIN No Apply Memori a 5 % CREA 2-19 cream from l 00:00: head to [place] 00 toe; leave on for 8-14 hours before washing off with water; reapply in 1 week FUROSEMIDE Yes one po Memor ia 40 MG TABS 1-27 daily PRN l 00:00: Matthew 00 KLOR-CON 10 Yes one po Mike juliano TAB 10MEQ 1-27 daily As l ER 00:00: needed with Lasix TRAMADOL Yes 1 po BID Memor ia HCL 50 MG 1-27 PRN Pain l TABS 00:00: TRIAMCINOLO No use BID to Memoria NE 1-27 affected l ACETONIDE 00:00: area [place] 0.1 % CREA 00 FUROSEMIDE Yes one po Memor ia 40 MG TABS 1-27 daily PRN l 00:00: KLOR-CON 10 Yes one po Mike juliano TAB 10MEQ 1-27 daily As l ER 00:00: needed with Lasix TRAMADOL Yes 1 po BID Memor ia HCL 50 MG 1-27 PRN Pain l TABS 00:00: TRAMADOL Yes 1 po BID Memor ia HCL 50 MG 1-27 PRN Pain l TABS 00:00: FUROSEMIDE Yes one po Memor ia 40 MG TABS 1-27 daily PRN l 00:00: KLOR-CON 10 Yes one po Mike juliano TAB 10MEQ 1-27 daily As l ER 00:00: needed with Lasix TRAMADOL Yes 1 po BID Memor ia HCL 50 MG 1-27 PRN Pain l TABS 00:00: METOLAZONE 2012-11 No 1 po BID Mem oria 2.5 MG TABS 1-25 30 minutes l 00:00: prior to furosemide METOLAZONE 2012-11 No 1 po BID Mem oria 2.5 MG TABS 1-25 30 minutes l 00:00: prior to furosemide LEVAQUIN 2012-11 No one po Memoria 500 MG TABS 0-04 daily l 00:00: LEVAQUIN 2012-11 No one po Memoria 500 MG TABS 0-04 daily l 00:00: METFORMIN 2012-11 Yes 1 po BID Mike juliano HCL 1000 MG 0-01 l TABS 00:00: SIMVASTATIN 2012-11 Yes 1 po daily Memoria 40 MG TABS 0-01 l 00:00: HYDROCODONE 2012-11 Yes 1 po BID Me moria -ACETAMINOP 0-01 PRN pain l HEN 5-325 00:00: Matthew TABS GLIPIZIDE 2012-11 Yes 1 po TID Mike juliano 10 MG TABS 0-01 l 00:00: [place] 00 METOLAZONE 2012-11 No take one Mem oria 2.5 MG TABS 0-01 pill 30 l 00:00: minutes [place] 00 prior to Lasix twice a day SIMVASTATIN 2012-11 Yes 1 po daily Memoria 40 MG TABS 0-01 l 00:00: Matthew 00 HYDROCODONE 2012-11 No 1 po BID Me moria -ACETAMINOP 0-01 PRN pain l HEN 5-325 00:00: Matthew MG TABS 00 GLIPIZIDE 2012-11 Yes one by Memori a 10 MG TABS 0-01 mouth l 00:00: twice Matthew daily with food METFORMIN 2012-11 Yes 1 po BID Mike juliano HCL 1000 MG 0-01 l TABS 00:00: [place] 00 METOLAZONE 2012-11 No take one Mem oria 2.5 MG TABS 0-01 pill 30 l 00:00: minutes prior to Lasix twice a day GLIPIZIDE 2012-11 Yes one by Memori a 10 MG TABS 0-01 mouth l 00:00: twice Matthew 00 daily with food HYDROCODONE 2012-11 No 1 po BID Me moria -ACETAMINOP 0-01 PRN pain l HEN 5-325 00:00: [place] MG TABS 00 Cipro 500 Cipro 500 No 1 Q12H Cipro 500 [place] mg tablet mg tablet mg tablet da Take 1 Take 1 Take 1 Medical tablet tablet tablet Group every 12 every 12 every 12 hours by hours by hours by oral route oral route oral route for 10 for 10 for 10 days. days. days. Diflucan Diflucan No 1 Q1D Diflucan [place] 150 mg 150 mg 150 mg da tablet Take tablet Take tablet Medical 1 tablet 1 tablet Take 1 Group every day every day tablet by oral by oral every day route for 5 route for 5 by oral days. days. route for 5 days. duloxetine duloxetine No 1capsul Q1D duloxetine [place] 60 mg 60 mg e(s) 60 mg da capsule,del capsule,del capsule,de Medical ayed ayed layed Group release release release Take 1 Take 1 Take 1 capsule capsule capsule every day every day every day by oral by oral by oral route for route for route for 30 days. 30 days. 30 days. gabapentin gabapentin No 2capsul TID gabapentin [place] 300 mg 300 mg e(s) 300 mg da capsule capsule capsule Medica l Take 2 Take 2 Take 2 Group capsules 3 capsules 3 capsules 3 times a day times a day times a by oral by oral day by route for route for oral route 30 days. 30 days. for 30 days. glyburide 5 glyburide 5 No 1 Q1D glyburide [place] mg tablet mg tablet 5 mg da Take 1 Take 1 tablet Medical tablet tablet Take 1 Group every day every day tablet by oral by oral every day route for route for by oral 90 days. 90 days. route for 90 days. lisinopril lisinopril No lisinopril [place] 10 mg 10 mg 10 mg da tablet TAKE tablet TAKE tablet Medical ONE (1) ONE (1) TAKE ONE Group TABLET(S) TABLET(S) (1) BY MOUTH BY MOUTH TABLET(S) DAILY. DAILY. BY MOUTH DAILY. metformin metformin No metformin [place] 1,000 mg 1,000 mg 1,000 mg da tablet TAKE tablet TAKE tablet Medical ONE (1) ONE (1) TAKE ONE Group TABLET(S) TABLET(S) (1) BY MOUTH BY MOUTH TABLET(S) TWICE A TWICE A BY MOUTH DAY. DAY. TWICE A DAY. Tylenol-Cod Tylenol-Cod No 1 Q7H Tylenol-Co [place] eine #3 300 eine #3 300 deine #3 da mg-30 mg mg-30 mg 300 mg-30 Me dical tablet Take tablet Take mg tablet Group 1 tablet 1 tablet Take 1 every 6-8 every 6-8 tablet hours by hours by every 6-8 oral route oral route hours by for 30 for 30 oral route days. days. for 30 days. 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 BP Systolic 2020-02-09 00:00:00 110 mm[Hg] [facility] Body Weight 2020-02-09 00:00:00 3872 [oz_av] [facility] BP Diastolic 2020-01-03 00:00:00 70 mm[Hg] [facility] Height 2020-01-03 00:00:00 64 [in_i] [facility] BMI (Body Mass 2020-01-03 00:00:00 42.7 kg/m2 [facility] Medical Index) Group BP Systolic 2020-01-03 00:00:00 126 mm[Hg] [facility] Body Weight 2020-01-03 00:00:00 249 [lb_av] [facility] BP Diastolic 2019-12-20 00:00:00 65 mm[Hg] [facility] Height 2019-12-20 00:00:00 64 [in_i] [facility] BMI (Body Mass 2019-12-20 00:00:00 43.8 kg/m2 [facility] Medical Index) Group BP Systolic 2019-12-20 00:00:00 123 mm[Hg] [facility] Body Weight 2019-12-20 00:00:00 255 [lb_av] [facility] BP Diastolic 2019-12-15 00:00:00 62 mm[Hg] [facility] Height 2019-12-15 00:00:00 64 [in_i] [facility] BMI (Body Mass 2019-12-15 00:00:00 43.8 kg/m2 [facility] Medical Index) Group BP Systolic 2019-12-15 00:00:00 123 mm[Hg] [facility] Body Weight 2019-12-15 00:00:00 4086 [oz_av] [facility] BP Diastolic 2019-11-28 00:00:00 65 mm[Hg] [facility] Height 2019-11-28 00:00:00 64 [in_i] [facility] BMI (Body Mass 2019-11-28 00:00:00 42.7 kg/m2 [facility] Medical Index) Group BP Systolic 2019-11-28 00:00:00 109 mm[Hg] [facility] Body Weight 2019-11-28 00:00:00 3984 [oz_av] [facility] BP Diastolic 2019-08-04 00:00:00 66 mm[Hg] [facility] Height 2019-08-04 00:00:00 64 [in_i] [facility] BMI (Body Mass 2019-08-04 00:00:00 44.6 kg/m2 [facility] Medical Index) Group BP Systolic 2019-08-04 00:00:00 124 mm[Hg] [facility] Body Weight 2019-08-04 00:00:00 4160 [oz_av] [facility] BP Diastolic 2019-03-31 00:00:00 99 mm[Hg] [facility] Height 2019-03-31 00:00:00 64 [in_i] [facility] BMI (Body Mass 2019-03-31 00:00:00 45.6 kg/m2 [facility] Medical Index) Group BP Systolic 2019-03-31 00:00:00 148 mm[Hg] [facility] Body Weight 2019-03-31 00:00:00 4248 [oz_av] [facility] BP Diastolic 2019-01-12 00:00:00 62 mm[Hg] [facility] Height 2019-01-12 00:00:00 64 [in_i] [facility] BMI (Body Mass 2019-01-12 00:00:00 45.6 kg/m2 [facility] Medical Index) Group BP Systolic 2019-01-12 00:00:00 134 mm[Hg] [facility] Body Weight 2019-01-12 00:00:00 4249 [oz_av] [facility] BP Diastolic 2018-12-06 00:00:00 73 mm[Hg] [facility] Height 2018-12-06 00:00:00 64 [in_i] [facility] BMI (Body Mass 2018-12-06 00:00:00 45.7 kg/m2 [facility] Medical Index) Group BP Systolic 2018-12-06 00:00:00 143 mm[Hg] [facility] Body Weight 2018-12-06 00:00:00 4264 [oz_av] [facility] BP Diastolic 2018-11-11 00:00:00 74 mm[Hg] [facility] Height 2018-11-11 00:00:00 64 [in_i] [facility] BMI (Body Mass 2018-11-11 00:00:00 45.2 kg/m2 [facility] 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 BP Systolic 2018-11-11 00:00:00 153 mm[Hg] [facility] Body Weight 2018-11-11 00:00:00 4210 [oz_av] [facility] Weight 2018-07-26 15:22:00 [facility] BMI Calculated 2018-07-26 15:22:00 Memori al [place] Height 2018-07-26 15:22:00 154.94 cm [facility] Matthew Heart Rate 2018-07-26 15:22:00 [facility] Matthew Temperature Oral (F) 2018-07-26 15:22:00 98.0 F [facility] Systolic (mm Hg) 2018-07-26 15:22:00 Mike rial Matthew Diastolic (mm Hg) 2018-07-26 15:22:00 Mem orial Matthew Weight 2018-06-30 15:00:00 [facility] Matthew BMI Calculated 2018-06-30 15:00:00 Memori al [place] Systolic (mm Hg) 2018-06-30 15:00:00 Mike rial [place] Diastolic (mm Hg) 2018-06-30 15:00:00 Mem orial [place] Heart Rate 2018-06-30 15:00:00 [facility] [place] Height 2018-06-30 15:00:00 154.94 cm [facility] [place] Heart Rate 2018-05-31 19:04:00 [facility] Matthew Temperature Oral (F) 2018-05-31 19:04:00 98.3 F [facility] Matthew BMI Calculated 2018-05-31 19:04:00 Memori al [place] Weight 2018-05-31 19:04:00 [facility] [place] Height 2018-05-31 19:04:00 154.94 cm [facility] Matthew Systolic (mm Hg) 2018-05-31 19:04:00 Miek rial Matthew Diastolic (mm Hg) 2018-05-31 19:04:00 Mem orial [place] Height 2018-03-08 13:31:00 157.48 cm [facility] Matthew BMI Calculated 2018-03-08 13:31:00 Memori al Matthew Weight 2018-03-08 13:31:00 [facility] [place] Systolic (mm Hg) 2018-03-08 13:31:00 Mike rial [place] Diastolic (mm Hg) 2018-03-08 13:31:00 Mem orial [place] Heart Rate 2018-03-08 13:31:00 [facility] Matthew Temperature Oral (F) 2018-03-08 13:31:00 97.6 F [facility] Matthew Height 2017-11-09 14:11:00 157.48 cm [facility] [place] Weight 2017-11-09 14:11:00 [facility] Matthew BMI Calculated 2017-11-09 14:11:00 Memori al Matthew Temperature Oral (F) 2017-11-09 14:11:00 98.3 F [facility] [place] Heart Rate 2017-11-09 14:11:00 [facility] Matthew Systolic (mm Hg) 2017-11-09 14:11:00 Mike rial Matthew Diastolic (mm Hg) 2017-11-09 14:11:00 Mem orial Matthew Height 2015-07-19 17:28:01 [facility] Matthew Weight 2015-07-19 17:28:01 [facility] Matthew Heart Rate 2015-07-19 17:28:01 [facility] [place] Temperature Oral (F) 2015-07-19 17:28:01 98.2 F [facility] [place] Systolic (mm Hg) 2015-07-19 17:28:01 Mike rial [place] Diastolic (mm Hg) 2015-07-19 17:28:01 Mem orial [place] Height 2015-04-06 19:27:41 [facility] Matthew Weight 2015-04-06 19:27:41 [facility] Temperature Oral (F) 2015-04-06 19:27:41 98.6 F [facility] [place] Heart Rate 2015-04-06 19:27:41 [facility] [place] Systolic (mm Hg) 2015-04-06 19:27:41 Mike rial Matthew Diastolic (mm Hg) 2015-04-06 19:27:41 Mem orial Matthew Height 2014-11-20 16:30:01 [facility] [place] Weight 2014-11-20 16:30:01 [facility] [place] Temperature Oral (F) 2014-11-20 16:30:01 97.8 F [facility] Heart Rate 2014-11-20 16:30:01 [facility] [place] Systolic (mm Hg) 2014-11-20 16:30:01 Mike rial [place] Diastolic (mm Hg) 2014-11-20 16:30:01 Mem orial [place] Weight 2014-08-28 17:45:31 [facility] [place] Temperature Oral (F) 2014-08-28 17:45:31 97.6 F [facility] [place] Heart Rate 2014-08-28 17:45:31 [facility] Matthew Systolic (mm Hg) 2014-08-28 17:45:31 Mike rial Matthew Diastolic (mm Hg) 2014-08-28 17:45:31 Mem orial Matthew Temperature Oral (F) 2014-06-19 13:28:41 97.4 F [facility] Matthew Weight 2014-06-19 13:28:41 [facility] [place] Systolic (mm Hg) 2014-06-19 13:28:41 Mike rial Matthew Diastolic (mm Hg) 2014-06-19 13:28:41 Mem orial [place] Temperature Oral (F) 2014-05-19 14:03:43 97.8 F [facility] [place] Weight 2014-05-19 14:03:43 [facility] [place] Systolic (mm Hg) 2014-05-19 14:03:43 Mike rial [place] Diastolic (mm Hg) 2014-05-19 14:03:43 Mem orial [place] Temperature Oral (F) 2014-05-05 13:49:13 97.8 F [facility] Weight 2014-04-20 18:14:00 [facility] [place] Temperature Oral (F) 2014-04-20 18:14:00 97.7 F [facility] [place] Heart Rate 2014-04-20 18:14:00 [facility] [place] Systolic (mm Hg) 2014-04-20 18:14:00 Mike rial [place] Diastolic (mm Hg) 2014-04-20 18:14:00 Mem orial Matthew Weight 2014-03-27 12:49:12 [facility] [place] Systolic (mm Hg) 2014-03-27 12:49:12 Mike rial [place] Diastolic (mm Hg) 2014-03-27 12:49:12 Mem orial [place] Temperature Oral (F) 2014-03-27 12:49:12 97.5 F [facility] Heart Rate 2014-03-27 12:49:12 [facility] Weight 2014-01-18 15:42:51 [facility] [place] Systolic (mm Hg) 2014-01-18 15:42:51 Mike rial [place] Diastolic (mm Hg) 2014-01-18 15:42:51 Mem orial Matthew Temperature Oral (F) 2014-01-18 15:42:51 97.9 F [facility] Heart Rate 2014-01-18 15:42:51 [facility] [place] Weight 2013-12-26 20:49:32 [facility] Systolic (mm Hg) 2013-12-26 20:49:32 Mike rial [place] Diastolic (mm Hg) 2013-12-26 20:49:32 Mem orial Matthew Temperature Oral (F) 2013-12-26 20:49:32 98.1 F [facility] [place] Heart Rate 2013-12-26 20:49:32 [facility] [place] Weight 2013-09-27 15:34:42 [facility] Matthew Systolic (mm Hg) 2013-09-27 15:34:42 Mike rial Matthew Diastolic (mm Hg) 2013-09-27 15:34:42 Mem orial [place] Heart Rate 2013-09-27 15:34:42 [facility] Matthew Temperature Oral (F) 2013-09-27 15:34:42 98.0 F [facility] Weight 2013-09-02 13:17:51 [facility] Temperature Oral (F) 2013-09-02 13:17:51 98.2 F [facility] [place] Heart Rate 2013-09-02 13:17:51 [facility] Matthew Systolic (mm Hg) 2013-09-02 13:17:51 Mike rial Matthew Diastolic (mm Hg) 2013-09-02 13:17:51 Mem orial [place] Height 2013-08-30 13:26:47 [facility] [place] Weight 2013-08-30 13:26:47 [facility] [place] Temperature Oral (F) 2013-08-30 13:26:47 98.4 F [facility] Matthew Heart Rate 2013-08-30 13:26:47 [facility] Systolic (mm Hg) 2013-08-30 13:26:47 Mike rial [place] Diastolic (mm Hg) 2013-08-30 13:26:47 Mem orial [place] Procedures Procedure Date / Time Performing Source Performed Clinician Esophagoenterostomy 2020-02-09 00:00:00 [facility] Colonoscopy 2020-01-03 00:00:[address] [facility] [address], abdomen + pelvis, w/ 2019-12-15 00:00:00 [facility] XR, chest 2019-12-15 00:00:00 [facility] Mammogram<sup>1</sup> 2017-12-18 06:00:00 Maxx al [place] Colonoscopy<sup>2</sup> 2016-08-13 05:00:00 Mike magallanes Matthew diabetic foot check 2013-12-26 20:49:32 [facility] [place] mammogram 2012-04-30 13:46:43 [facility] house colonoscopy 2012-04-30 13:46:13 [facility] house [facility] Cholecyst[facility] Hysterectomy [facility] Encounters Start End Encounter Admission Attending Care Care Encounter Source Date/Time Date/Time Type Type Clinicians Facility Department ID 2020-01-17 Inpatient C DAVID, [facility] [id number] [place] 08:15:00 [facility] 2020-03-06 2020-03-06 Leon [facility] [place] - [id number] [place] 00:00:00 00:00:00 Blake Blackmon Medical Medical MD: [address] [facility] [address], [place] [address] , Ph. 2020-01-11 2020-02-11 Outpatient C DAVID, [facility] [id number] [place] 10:56:00 23:59:00 [facility] 2020-02-09 2020-02-09 Leon [facility] [place] - [id number] [place] 00:00:00 00:00:00 Kenneth Rust Medical MD: [address] [facility] [address], [place] [address] , Ph. 2020-01-03 2020-01-03 Michael HOFFMAN [place] - [id number] [place] 00:00:00 00:00:00 Tomás Lay MD: Medical Medica l [address] [facility] [address], [place] [address] , Ph. [phone] 2019-12-28 2019-12-29 Outpatient [facility] [id number] 15:54:00 23:59:59 17 2019-12-20 2019-12-20 Michael [facility] [place] - [id number] [place] 00:00:00 00:00:00 Tomás Lay MD: Medical Medica l [address] [facility] [address], [place] [address] , Ph. [phone] 2019-12-15 2019-12-15 Leon [facility] [place] - [id number] [place] 00:00:00 00:00:00 Kenneth Rust MD: [address] [place] [address] [address], [place] [address] , Ph. 2019-11-28 2019-11-28 Leon [facility] [place] - [id number] [place] 00:00:00 00:00:00 Kenneth Rust MD: [address] [place] [address] [address], [place] [address] , Ph. 2019-08-04 2019-08-04 Leon [facility] [place] - [id number] [place] 00:00:00 00:00:00 Kenneth Rust MD: [address] [place] [address] [address], [place] [address] , Ph. 2019-03-31 2019-03-31 Leon [facility] [place] - [id number] [place] 00:00:00 00:00:00 Kenneth Rust MD: [address] [place] [address] [address], [place] [address] , Ph. 2019-03-28 2019-03-29 Outpatient [facility] MG [id number] 07:46:38 07:46:38 29 2019-01-12 2019-01-12 Leon [facility] [place] - [id number] [place] 00:00:00 00:00:00 Kenneth Rust Medical MD: [address] [address], [place] [address] , Ph. 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 2018-11-11 2018-11-11 Leon H[place] - [id number] [place] 00:00:00 00:00:00 Kenneth Rust MD: [address] [address], [place] [address] , Ph. 2018-11-03 2018-11-03 Leon H[place] - [id number] [place] 00:00:00 00:00:00 Kenneth Rust Medical MD: [address] [address], [place] [address] , Ph. 2018-08-14 2018-08-15 Outpatient MG MG [id number] 09:42:00 23:59:59 16 2018-07-28 2018-07-29 Outpatient MG [facility] [id number] 11:30:00 23:59:59 15 2018-07-26 2018-07-[address] [id number] 11:00:00 23:59:59 Laury 32 Henry 2018-07-12 2018-07-12 Outpatient Lupe MG [facility] [id number] 09:00:00 09:00:00 Laury Karen Henry 2018-07-05 2018-07-[address] [id number] 07:15:00 23:59:59 Laury 27 [place] 2018-06-30 2018-06-30 Outpatient Torey, [facility] [id number] 10:00:00 23:59:59 Nadim Bhavin 31 2018-06-15 2018-06-16 Outpatient [facility] [id number] 08:51:00 23:59:59 14 2018-06-15 2018-06-16 Outpatient [facility] [id number] 08:51:00 23:59:59 14 2018-05-31 2018-05-31 Outpatient Lupe, [facility] [id number] 14:00:00 23:59:59 Laury 30 [place] 2018-05-19 2018-05-19 Outpatient Maryann, [facility] [id number] 13:30:00 13:30:00 Niecy 29 2018-03-08 2018-03-08 Outpatient VISIT, [facility] [id number] 09:15:00 23:59:59 NURSE STRB 28 XRAY 2018-03-08 2018-03-08 Outpatient VISIT, [facility] [id number] 09:15:00 23:59:59 NURSE STRB 28 XRAY 2018-03-08 2018-03-08 Outpatient Lupe, [facility] [id number] 08:00:00 23:59:59 Laury 25 [address] 2018-03-08 2018-03-08 Outpatient Lupe, [facility] [id number] 08:00:00 23:59:59 Laury 25 [place] 2017-12-14 2017-12-15 Outpatient [facility] [id number] 08:36:00 23:59:59 13 2017-12-01 2017-12-02 Outpatient [facility] [id number] 16:41:00 23:59:59 12 2017-11-16 2017-11-17 Outpatient [facility] [id number] 09:44:00 23:59:59 11 2017-11-09 2017-11-09 Outpatient Lupe, [facility] [id number] 08:30:00 23:59:59 Laury 24 [place] 2017-11-03 2017-11-04 Outpatient [facility] [id number] 09:21:00 23:59:59 10 2016-07-29 2016-07-29 Outpatient Sharifa Andrade.16.840. [id number] . [id number] 06:47:00 23:59:00 Laury [id number]. [id number] [place] 3.615.29 5.29 Results Test Description Test Time Test Comments Results Result Comments Source VITAMIN D TOTAL 25 (OH) 2020-01-12 17:44:00 Test Item Value Reference Range Interpretation Comme nts VITAMIN D 25(OH) (test code = VD) 13.2 ng/mL 30.0-100.0 L [id number] 16:38:00 Test Item Value Reference Range Interpretation Comments HIV-1,2 and p24 (test code = NON-REACTIVE NON-REACTIVE CHIV) HEPATITIS C [id number] 16:34:00 Test Item Value Reference Range Interpretation Comments HCAB (test code = HCAB) NON-REACTIVE NON-REACTIVE HEPATITIS B SURFACE [id number] 16:05:00 Test Item Value Reference Range Interpretation Comments HBSAG (test code = HBSAG) NON-REACTIVE NON-REACTIVE HEPATITIS A IGM [id number] 07:13:00 Test Item Value Reference Range Interpretation Comments HEPATITIS A IGM NON-REACTIVE NON-REACTIVE For addition al (test code = information, pl ease [id number]) refer tohttp://educat ion.[employer] estVC4Africas. MedWhat/fa q/KSE221(This l ink is being provided for informational/e ducati onal purposes only.)TEST PERF ORMED AT:[facility] [id number] [place] [address]RVINADEV IRBY MD HEPATITIS B CORE IgM [id number] 07:12:00 Test Item Value Reference Range Interpretation Comments HEPATITIS B CORE NON-REACTIVE NON-REACTIVE TEST PERFOR MED ANTIBODY (IGM) (test AT[facility] code = 80206254) [id number] [place] [address]RDRUUNEERAJ IRBY MD COMPREHENSIVE METABOLIC [id number] 12:32:00 Test Item Value Reference Range Interpretation Comments GLUCOSE (test code = 06D) 55 mg/dL 75-100 LL SODIUM (test code = 01A) 140 mmol/L 136-145 POTASSIUM (test code = 01B) 4.2 mmol/L 3.6-5.1 CHLORIDE (test code = 04A) 109 mmol/L 98-107 H CO2 (test code = 02A) 26 mmol/L 22-32 ANION GAP (test code = ANG) 9.2 mmol/L BUN (test code = 05D) 10 mg/dL 7-18 CREATININE (test code = 03E) 1.0 mg/dL 0.4-1.1 BUN/CREA (test code = BCR) 10 12-20 L CALCIUM (test code = 09D) 9.5 mg/dL 8.3-9.5 BILI TOTAL (test code = 11A) 0.3 mg/dL 0.2-1.0 PROTEIN (test code = 07D) 7.9 g/dL 6.4-8.2 ALBUMIN (test code = 08D) 3.4 g/dL 3.5-4.8 L GLOBULIN (test code = GLB) 4.5 g/dL 1.5-3.8 H ALB/GLOB (test code = AGRR) 0.8 1.0-2.6 L ALK PHOS (test code = 35A) 66 IU/L 42-121 AST (test code = 30A) 19 IU/L <=42 ALT (test code = 31A) 15 IU/L <=78 CARCINOEMBRYONIC [id number] 12:06:00 Test Item Value Reference Range Interpretation Comments CEA (test code = CEA) 16.7 ng/mL 0.0-3.0 H CBC (INCLUDES AUTOMATED DIFFERENTIAL)2020-01-11 11:35:00 Test Item Value Reference Range Interpretation Comments WBC (test code = WBC) 9.3 10\S\3/uL 4.5-11.0 RBC (test code = RBC) 4.03 10\S\6/uL 4.20-5.60 L HGB (test code = HBG) 11.0 g/dL 12.0-15.5 L HCT (test code = HCT) 35.1 % 35.0-44.0 MCV (test code = MCV) 87.1 fL 81.0-99.0 MCH (test code = MCH) 27.3 pg 27.0-31.0 MCHC (test code = MCHC) 31.3 g/dL 32.0-36.0 L RDW (test code = RDW) 14.4 % [...] (test code = RBCMOR) NORMAL Surgical pathology [id number] 10:45:00 Test Item Value Reference Range Interpretation Comments Surgical pathology see separate pathology study (test code = report. 68265-8) [facility] [id number] 10:45:00 Test Item Value Reference Range Interpretation Comments Surgical pathology see separate pathology study (test code = report. 95815-0) [facility] W Auto Differential panel - [id number] 08:50:00 Test Item Value Reference Range Interpretation Comments white blood count (test code = 7.8 K/uL 4.0-11.5 white blood count) red blood count (test code = red 3.81 M/uL 3.80-5.20 blood count) hemoglobin (test code = 10.4 g/dL 10.5-15.7 L hemoglobin) hematocrit (test code = 34.1 % 34.0-50.0 hematocrit) Erythrocyte mean corpuscular 89.5 fL 86-100 volume [Entitic volume] (test code = 61305-9) mean corpuscular hemoglobin (test 27.3 pg 26.2-33.4 code = mean corpuscular hemoglobin) mean corpuscular HGB conc (test 30.5 g/dL 30-34 code = mean corpuscular HGB conc) red cell distribution width (test 14.3 % 12.0-15.5 code = red cell distribution width) platelet count (test code = 187 K/uL 165-450 platelet count) mean platelet volume (test code = 10.6 fL 9.4-12.6 mean platelet volume) Neutrophils.segmented/100 70.5 % 44.4-80.1 leukocytes in Blood (test code = 61227-0) Granulocytes Immature [#/volume] 0.0 K/uL 0.0-0.03 H in Blood (test code = 83027-2) lymphocyte% (test code = 21.5 % 10.0-50.0 lymphocyte%) mono % (test code = mono %) 5.4 % 3.6-12.0 eos % (test code = eos %) 1.7 % 0.0-5.4 Basophils/100 leukocytes in 0.4 % 0.1-1.2 Unspecified specimen (test code = 94366-7) Neutrophils.band form [#/volume] 5.49 K/uL 1.56-6.13 in Blood (test code = 56885-1) Lymphocytes [#/volume] in 1.7 K/uL 1.18-3.74 Unspecified specimen by Automated count (test code = 44951-7) mono # (test code = mono #) 0.42 K/uL 0.24-0.86 eos # (test code = eos #) 0.13 K/uL 0.04-0.36 basophil # (test code = basophil 0.03 K/uL 0.01-0.08 #) NRBC% (test code = NRBC%) 0 /100 WBC 0-0.2 NRBC# (test code = NRBC#) 0 [facility] [id number] 08:50:00 NeutrophilsBandLymphocyteAtypical LymphMonocyteBasophilPlatelet EstimateDifferential comment-[facility] 2000 [facility] - Serum or [id number] 08:50:00 Test Item Value Reference Range Interpretation Comments Glucose [Mass/volume] in Serum or 140 mg/dL 82-115 H Plasma (test code = 2345-7) Urea nitrogen [Mass/volume] in 13 mg/dL 8-23 Serum or Plasma (test code = 3094-0) osmolality calculated,serum (test 280 mOsm/kg 280-300 code = osmolality calculated,serum) creatinine (test code = 1.1 mg/dL 0.50-0.90 H creatinine) glomerular filtration rate (test 50.01 L code = glomerular filtration rate) Urea nitrogen/Creatinine [Mass 11.8 12-20 L Ratio] in Serum or Plasma (test code = 3097-3) sodium level (test code = sodium 139 mmol/L 135-145 level) potassium level (test code = 4.6 mmol/L 3.5-5.2 potassium level) chloride level (test code = 101 mmol/L 98-108 chloride level) CO2 (test code = CO2) 25 mmol/L 21-32 anion gap (test code = anion gap) 17.6 mEq/L 12-20 calcium level (test code = 9.4 mg/dL 8.8-10.2 calcium level) total protein (test code = total 7.2 g/dL 6.6-8.7 protein) albumin (test code = albumin) 3.9 g/dL 3.5-5.2 globulin (test code = globulin) 3.3 gm/dL A/G ratio (test code = A/G ratio) 1.2 >1.0 bilirubin,total (test code = 0.4 mg/dL 0.0-1.2 bilirubin,total) AST/SGOT (test code = AST/SGOT) 13 U/L 15-32 L Alanine aminotransferase 8 U/L 0-33 [Enzymatic activity/volume] in Serum or Plasma (test code = 1742-6) Alkaline phosphatase [Enzymatic 69 U/L 35-105 activity/volume] in Serum or Plasma (test code = 6768-6) [facility]00 Test Item Value Reference Range Interpretation Comments cea (test code = cea) 13.53 0-4.7 H [facility] W Auto Differential panel - [id number] 08:50:00 Test Item Value Reference Range Interpretation Comments white blood count (test code = 7.8 K/uL 4.0-11.5 white blood count) red blood count (test code = red 3.81 M/uL 3.80-5.20 blood count) hemoglobin (test code = 10.4 g/dL 10.5-15.7 L hemoglobin) hematocrit (test code = 34.1 % 34.0-50.0 hematocrit) MCV [Entitic volume] (test code = 89.5 fL 86-100 50392-4) mean corpuscular hemoglobin (test 27.3 pg 26.2-33.4 code = mean corpuscular hemoglobin) mean corpuscular HGB conc (test 30.5 g/dL 30-34 code = mean corpuscular HGB conc) red cell distribution width (test 14.3 % 12.0-15.5 code = red cell distribution width) platelet count (test code = 187 K/uL 165-450 platelet count) mean platelet volume (test code = 10.6 fL 9.4-12.6 mean platelet volume) Segmented neutrophils/100 70.5 % 44.4-80.1 leukocytes in Blood (test code = 48196-5) Immature granulocytes [#/volume] 0.0 K/uL 0.0-0.03 H in Blood (test code = 39629-8) lymphocyte% (test code = 21.5 % 10.0-50.0 lymphocyte%) mono % (test code = mono %) 5.4 % 3.6-12.0 eos % (test code = eos %) 1.7 % 0.0-5.4 Basophils/100 leukocytes in 0.4 % 0.1-1.2 Unspecified specimen (test code = 41259-5) Band form neutrophils [#/volume] 5.49 K/uL 1.56-6.13 in Blood (test code = 05326-1) Lymphocytes [#/volume] in 1.7 K/uL 1.18-3.74 Unspecified specimen by Automated count (test code = 75933-7) mono # (test code = mono #) 0.42 K/uL 0.24-0.86 eos # (test code = eos #) 0.13 K/uL 0.04-0.36 basophil # (test code = basophil 0.03 K/uL 0.01-0.08 #) NRBC% (test code = NRBC%) 0 /100 WBC 0-0.2 NRBC# (test code = NRBC#) 0 K/uL [facility], method unspecified - [id number] 08:50:00NeutrophilsBandLymphocyteAtypical LymphMonocyteBasophilPlatelet EstimateDifferential comment-[facility] 2000 panel - Serum or [id number] 08:50:00 Test Item Value Reference Range Interpretation Comments Glucose [Mass/volume] in Serum or 140 mg/dL 82-115 H Plasma (test code = 2345-7) Urea nitrogen [Mass/volume] in 13 mg/dL 8-23 Serum or Plasma (test code = 3094-0) osmolality calculated,serum (test 280 mOsm/kg 280-300 code = osmolality calculated,serum) creatinine (test code = 1.1 mg/dL 0.50-0.90 H creatinine) glomerular filtration rate (test 50.01 L code = glomerular filtration rate) Urea nitrogen/Creatinine [Mass 11.8 12-20 L Ratio] in Serum or Plasma (test code = 3097-3) sodium level (test code = sodium 139 mmol/L 135-145 level) potassium level (test code = 4.6 mmol/L 3.5-5.2 potassium level) chloride level (test code = 101 mmol/L 98-108 chloride level) CO2 (test code = CO2) 25 mmol/L 21-32 anion gap (test code = anion gap) 17.6 mEq/L 12-20 calcium level (test code = 9.4 mg/dL 8.8-10.2 calcium level) total protein (test code = total 7.2 g/dL 6.6-8.7 protein) albumin (test code = albumin) 3.9 g/dL 3.5-5.2 globulin (test code = globulin) 3.3 gm/dL A/G ratio (test code = A/G ratio) 1.2 >1.0 bilirubin,total (test code = 0.4 mg/dL 0.0-1.2 bilirubin,total) AST/SGOT (test code = AST/SGOT) 13 U/L 15-32 L Alanine aminotransferase 8 U/L 0-33 [Enzymatic activity/volume] in Serum or Plasma (test code = 1742-6) Alkaline phosphatase [Enzymatic 69 U/L 35-105 activity/volume] in Serum or Plasma (test code = 6768-6) [facility] 08:50:00 Test Item Value Reference Range Interpretation Comments cea (test code = cea) 13.53 0-4.7 H [facility] HospitalHemoglobin A1c [Mass/volume] in [id number] 06:09:00 Test Item Value Reference Range Interpretation Comments Hemoglobin A1c [Mass/volume] in Blood 7.4 % 4.0-6.0 H (test code = 48423-0) [facility] HospitalThyrotropin [Units/volume] in Serum or [id number] 06:09:00 Test Item Value Reference Range Interpretation Comments Thyrotropin [Units/volume] in 0.71 uIU/mL 0.36-3.74 Serum or Plasma (test code = 3016-3) [facility] - Serum or Plasma 2019-09-01 06:09:00 Test Item Value Reference Range Interpretation Comments Glucose [Mass/volume] in Serum or 167 mg/dL 82-115 H Plasma (test code = 2345-7) Urea nitrogen [Mass/volume] in 14 mg/dL 8-23 Serum or Plasma (test code = 3094-0) osmolality calculated, serum (test 289 280-300 code = osmolality calculated, serum) creatinine (test code = 1.0 mg/dL 0.50-0.90 H creatinine) glomerular filtration rate (test 55.82 L code = glomerular filtration rate) Urea nitrogen/Creatinine [Mass 14.0 12-20 Ratio] in Serum or Plasma (test code = 3097-3) sodium level (test code = sodium 143 mmol/L 135-145 level) potassium level (test code = 4.5 mmol/L 3.5-5.2 potassium level) chloride level (test code = 106 mmol/L 98-108 chloride level) CO2 (test code = CO2) 24 mmol/L 21-32 anion gap (test code = anion gap) 17.5 mEq/L 12-20 calcium level (test code = calcium 9.2 mg/dL 8.8-10.2 level) total protein (test code = total 7.2 g/dL 6.6-8.7 protein) albumin (test code = albumin) 3.9 g/dL 3.5-5.2 globulin (test code = globulin) 3.3 gm/dL A/G ratio (test code = A/G ratio) 1.2 >1.0 bilirubin,total (test code = 0.4 mg/dL 0.0-1.2 bilirubin,total) AST/SGOT (test code = AST/SGOT) 17 U/L 15-32 Alanine aminotransferase 12 U/L 0-33 [Enzymatic activity/volume] in Serum or Plasma (test code = 1742-6) Alkaline phosphatase [Enzymatic 64 U/L 35-105 activity/volume] in Serum or Plasma (test code = 6768-6) [facility] - Serum or [id number] 06:09:00 Test Item Value Reference Range Interpretation Comments cholesterol level (test code = 127 mg/dL 150-200 L cholesterol level) triglycerides level (test code = 196 mg/dL <150 H triglycerides level) HDL cholesterol (test code = HDL 33 mg/dL >65 L cholesterol) LDL cholesterol direct (test code = 73 mg/dL <100 LDL cholesterol direct) cholesterol risk ratio (test code = 3.848 cholesterol risk ratio) [facility] HospitalHem[facility] A1c [Mass/volume] in [id number] 07:11:00 Test Item Value Reference Range Interpretation Comments Deprecated Hemoglobin A1c in Blood 7.3 % 4.0-6.0 H (test code = 62988-4) [facility] [Mass/volume] in [id number] 07:11:00 Test Item Value Reference Range Interpretation Comments microalbumin random (test code = <12.0 0-20 microalbumin random) [facility] 2000 [facility] - Serum or Plasma 2019-04-06 07:11:00 Test Item Value Reference Range Interpretation Comments Glucose [Mass/volume] in Serum or 327 mg/dL 82-115 H Plasma (test code = 2345-7) Urea nitrogen [Mass/volume] in 12 mg/dL 8-23 Serum or Plasma (test code = 3094-0) Osmolality of Serum or Plasma 290 280-300 (test code = 2692-2) creatinine (test code = 1.1 mg/dL 0.50-0.90 H creatinine) glomerular filtration rate (test 50.17 L code = glomerular filtration rate) Urea nitrogen/Creatinine [Mass 10.9 12-20 L Ratio] in Serum or Plasma (test code = 3097-3) sodium level (test code = sodium 139 mmol/L 135-145 level) potassium level (test code = 4.3 mmol/L 3.5-5.2 potassium level) chloride level (test code = 99 mmol/L 98-108 chloride level) CO2 (test code = CO2) 23 mmol/L 21-32 anion gap (test code = anion gap) 21.3 mEq/L 12-20 H calcium level (test code = calcium 9.2 mg/dL 8.8-10.2 level) total protein (test code = total 6.8 g/dL 6.6-8.7 protein) albumin (test code = albumin) 3.6 g/dL 3.5-5.2 globulin (test code = globulin) 3.2 gm/dL A/G ratio (test code = A/G ratio) 1.1 >1.0 bilirubin,total (test code = 0.4 mg/dL 0.0-1.2 bilirubin,total) AST/SGOT (test code = AST/SGOT) 17 U/L 15-32 Alanine aminotransferase 11 U/L 0-33 [Enzymatic activity/volume] in Serum or Plasma (test code = 1742-6) Alkaline phosphatase [Enzymatic 69 U/L 35-105 activity/volume] in Serum or Plasma (test code = 6768-6) [facility] - Serum or [id number] 07:11:00 Test Item Value Reference Range Interpretation Comments cholesterol level (test code = 153 mg/dL 150-200 cholesterol level) triglycerides level (test code = 185 mg/dL <150 H triglycerides level) HDL cholesterol (test code = HDL 39 mg/dL >65 L cholesterol) LDL cholesterol direct (test code = 107 mg/dL <100 H LDL cholesterol direct) cholesterol risk ratio (test code = 3.923 cholesterol risk ratio) [facility] Hospital[facility]yrot[facility] [Units/volume] in Serum or [id number] 07:11:00 Test Item Value Reference Range Interpretation Comments Thyrotropin [Units/volume] in 0.60 uIU/mL 0.36-3.74 Serum or Plasma (test code = 3016-3) [facility] Differential panel - [id number] 09:23:00 Test Item Value Reference Range Interpretation Comments white blood count (test code = 5.6 K/uL 4.0-11.5 white blood count) red blood count (test code = red 4.13 M/uL 3.80-5.20 blood count) Hemoglobin [Mass/volume] in Blood 11.8 g/dL 10.5-15.7 (test code = 718-7) hematocrit (test code = hematocrit) 36.3 % 34.0-50.0 MCV [Entitic volume] (test code = 87.8 fL 78-98 51053-4) MCH [Entitic mass] (test code = 28.5 pg 26.2-33.4 28230-8) mean corpuscular HGB conc (test 32.5 g/dL 31.5-36.2 code = mean corpuscular HGB conc) red cell distribution width (test 14.9 % 11.5-15.5 code = red cell distribution width) Platelets [#/volume] in Blood (test 148 K/uL 137-338 code = 90302-0) Platelet mean volume [Entitic 8.8 fL 8.4-11.8 volume] in Blood (test code = 53052-2) Band form neutrophils/100 66.1 % 44.4-80.1 leukocytes in Blood (test code = 57086-4) Lymphocytes/100 leukocytes in Body 26.9 % 10.0-50.0 fluid (test code = 12253-7) Monocytes/100 leukocytes in Blood 5.7 % 3.6-12.04 by Automated count (test code = 5905-5) Eosinophils/100 leukocytes in Blood 0.6 % 0.0-5.41 by Automated count (test code = 713-8) Basophils/100 leukocytes in Blood 0.7 % 0.0-0.79 by Automated count (test code = 706-2) [facility] HospitalDifferent[facility] panel, method unspecified - [id number] 09:23:00NeutrophilsBandLymphocyteAtypical LymphMonocyteEosinophilBasophilPlatelet EstimatePlatelet Morphology HypochromasiaAnisocytosisMicrocytosisToxic GranulationHypersegmented PolysRouleauToxic VacuolationGiant PlateletsForrest General HospitalHemoglobin A1c [Mass/volume] in [id number] 09:23:00 Test Item Value Reference Range Interpretation Comments Deprecated Hemoglobin A1c in Blood 6.0 % 4.0-6.0 (test code = 92149-9) [facility] 2000 [facility] - Serum or Plasma 2018-11-04 09:23:00 Test Item Value Reference Range Interpretation Comments Glucose [Mass/volume] in Serum or 100 mg/dL 82-115 Plasma (test code = 2345-7) Urea nitrogen [Mass/volume] in 14 mg/dL 8-23 Serum or Plasma (test code = 3094-0) Osmolality of Serum or Plasma 286 280-300 (test code = 2692-2) creatinine (test code = 1.1 mg/dL 0.50-0.90 H creatinine) glomerular filtration rate (test 50.17 L code = glomerular filtration rate) Urea nitrogen/Creatinine [Mass 12.7 12-20 Ratio] in Serum or Plasma (test code = 3097-3) sodium level (test code = sodium 143 mmol/L 135-145 level) potassium level (test code = 4.7 mmol/L 3.5-5.2 potassium level) chloride level (test code = 106 mmol/L 98-108 chloride level) CO2 (test code = CO2) 26 mmol/L 21-32 anion gap (test code = anion gap) 15.7 mEq/L 12-20 calcium level (test code = calcium 9.4 mg/dL 8.8-10.2 level) total protein (test code = total 7.3 g/dL 6.6-8.7 protein) albumin (test code = albumin) 3.9 g/dL 3.5-5.2 globulin (test code = globulin) 3.4 gm/dL A/G ratio (test code = A/G ratio) 1.1 >1.0 bilirubin,total (test code = 0.3 mg/dL 0.0-1.2 bilirubin,total) AST/SGOT (test code = AST/SGOT) 19 U/L 15-32 Alanine aminotransferase 10 U/L 0-33 [Enzymatic activity/volume] in Serum or Plasma (test code = 1742-6) Alkaline phosphatase [Enzymatic 72 U/L 35-105 activity/volume] in Serum or Plasma (test code = 6768-6) [facility] 1996 panel - Serum or [id number] 09:23:00 Test Item Value Reference Range Interpretation Comments cholesterol level (test code = 164 mg/dL 150-200 cholesterol level) triglycerides level (test code = 162 mg/dL <150 H triglycerides level) HDL cholesterol (test code = HDL 42 mg/dL >65 L cholesterol) LDL cholesterol direct (test code = 110 mg/dL <100 H LDL cholesterol direct) cholesterol risk ratio (test code = 3.904 cholesterol risk ratio) [facility] HospitalMicroalbumin [Mass/volume] in [id number] 09:23:00 Test Item Value Reference Range Interpretation Comments microalbumin random (test code = <12.0 0-20 microalbumin random) [facility] HospitalLscryFtabnryte0728-19-32 18:58:006.9[facility] 18:58:83265 MEQ/LMem[facility] CvztmwkDxlmblnxq8267-20-34 18:58:003.9 MEQ/LMem[facility] YwwkuwyXpfhndzxh8820-71-77 18:58:000.8[facility] 2015-07-19 18:58:0011[facility] WpuopprAhinbvrux3728-17-89 18:58:00 Test Item Value Reference Range Interpretation Comments BUN/CREAT (test code = BUN/CREAT) 14 1 6-25 [facility] CldcieuMcckzonwl0697-41-22 18:58:003.4[facility] 2015-07-19 18:58:008.5[facility] HkfcxdtIsgppsikw0442-38-61 18:58:0019[facility] SgofrspOrslhgtpk5215-35-81 18:58:0018[facility] YvklkjtOrjhuhscz7054-80-47 18:58:0073[facility] AdqyqofJmfcojiao0159-31-02 20:13:70810Qeljhfsu Woronoco Zhitebqxy4466-74-31 20:13:004.3[facility] NykhwwpOugllofgk8371-10-51 20:13:003.6 [facility] UbtkrwqMidmdoyii0158-47-37 20:13:008.8[facility] 2015-04-06 20:13:000.67[facility] LazqgkvQwoyibeqq9608-72-88 20:13:007[facility] HcgykahFawstdfze1762-09-53 20:13:0053[facility] WnurfzeVtwvmtlen0767-24-77 20:13:0019[facility] UtdfgpvUwapwgbvf3508-47-80 20:13:0014[facility] Wor[place]oco Yxttocmff0201-60-61 20:13:70252Mawiqwnm AvukducFndmtbblq6377-65-29 20:13:0036 [facility] MqznkrvIspljkkds1514-70-65 20:13:0048[facility] 2015-04-06 20:13:005.9[facility] HfkzmdfDgftnttpg4598-94-64 14:17:47113Zerrneoa EggyunvQqlvgwawz7534-86-98 14:17:004.1[facility] KkhyzpiZybwfmnka0803-02-20 14:17:003.5[facility] WpfqmugTxycjrmqv6414-87-33 14:17:008.9[facility] Tsivyymap3972-73-02 14:17:000.70[facility] XwxbkzdWywqaritp3155-31-31 14:17:009 [facility] YdikuttEzoyqsfuk3804-58-02 14:17:0057[facility] 2014-11-17 14:17:0015[facility] HybjaplTslmiowwn1865-56-78 14:17:0012[facility] IvtgxxaYapbrewha7918-06-13 14:17:006.5[facility] IuqdbehHqptjvvst2107-80-79 19:06:23525Zkhikvdl AflcizuDftnleygx1672-96-28 19:06:004.2[facility] [place] Wysuzlmzz0136-84-58 19:06:003.7[facility] LvicbhaNrbmisakn5301-77-38 19:06:009.3 [facility] EfqdukuFdgehneko4333-33-76 19:06:000.69[facility] 2014-08-28 19:06:009[facility] XbnwveoXdnynlfpl7261-19-47 19:06:0061[facility] CiygmrjZaxabcncg7341-01-36 19:06:0018[facility] YnljmpxNnuthmtal6464-30-91 19:06:0013[facility] HqcwthkEbuvnvxgb3847-30-25 19:06:006.0[facility] Ijkftvcgu1134-27-16 13:29:31902Jggujsjn TgsxhhyOgwdwpnma9998-66-04 13:29:003.9 [facility] YlaiestNmdtcnpzj9424-39-33 13:29:003.5[facility] 2014-03-27 13:29:009.0[facility] KjubqvbFuqcujbph5520-93-70 13:29:000.64[facility] AjuilbbSipewatco5421-50-04 13:29:008[facility] PjueddnRogvkzypi2855-51-74 13:29:00 54[facility] MvdywrvLkubqvdtj8512-56-18 13:29:0020[facility] 2014-03-27 13:29:0015[facility] AbdtslfHtctakpmb2541-55-97 13:29:006.0[facility]
[2020-05-11] MEDS ORDERED: CEFAZOLIN/SWI 1gm 1 GM/10 ML SYR ONE (06:51)
[2020-05-11] MEDS ORDERED: NA CHLORIDE 0.9% 1,000 ML ONE (06:51)
[2020-05-11] MEDS ORDERED: LIDOCAINE 1% MPF 30 ML VIAL ONE (07:11)
[2020-05-11] MEDS ORDERED: BUPIVACAINE 0.5% PF 10 ML VIAL ONE (07:11)
[2020-05-11] MEDS ORDERED: propofoL 200 MG/20 ML VIAL IV ONE (07:15)
[2020-05-11] MEDS ORDERED: MIDAZOLAM HCL 2 MG/2 ML INJ ONE (07:15)
[2020-05-11] MEDS ORDERED: LIDOCAINE 1% MPF 5 ML VIAL ONE (07:15)
[2020-05-11] MEDS ORDERED: FENTANYL CITR 100 MCG/2 ML ONE (07:15)
[2020-05-11] MEDS ORDERED: KETOROLAC 30 MG/ML INJ ONE (08:04)
[2020-05-11] MEDS ORDERED: HYDROCODONE/APAP 7.5/325 MG TAB ONE (08:33)
--- NOTE | 2020-05-11 08:52 | OP ---
Date of Procedure: 05/11/2020 Surgeon: Jourdan Mercado MD Preoperative Diagnosis: Anal cancer status post Port-A-Cath placement. Postoperative Diagnosis: Anal cancer status post Port-A-Cath placement. Procedure: Removal of right chest Port-A-Cath. Estimated Blood Loss: Minimal. Specimen: Port-A-Cath device. Finding: As above. Anesthesia: MAC. Complications: None. Disposition: Patient tolerated the procedure in stable condition, taken to Recovery in good general condition. Description Of Procedure: Patient was brought to the OR and placed in supine position. MAC anesthes ia was begun. The patient was prepped and draped in the usual sterile fashion. Marcaine 0.5% was in filtrated locally. A 15-blade was used to make a 3 cm incision over the Port-A-Cath. Subcutaneous t issue divided. Port-A-cath device was identified and freed from the surrounding tissue with sharp an d blunt dissection, removed and sent to Pathology in 1 piece. Wound was irrigated. Bleeding control led with electrocautery. 3-0 chromic used for subcutaneous tissue and closed the skin. Sterile dres sing was applied. Patient awakened and taken to Recovery in good general condition. Discharge Note: The patient will go to day surgery and home when stable. Disposition: Home. Condition: Stable. Discharge Instructions: Resume home medications and diet. Activity as tolerated. No heavy lifting. Remove outer dressing in 2 days. Shower. Keep wound clean and dry. Follow up in my office 2 week s, call for appointment. Tylenol #3 one tablet p.o. q.4 p.r.n. pain. Keep Steri-Strips on at all ti mes. /MODL Voice ID: [id number] Report ID: [id number]
[2020-05-11 09:08] VITALS: BP 135/49; TEMP 97; O2SAT 100
== END 2020-05-11 08:45 | disposition home or self-care (01) ==
LOC: OR 06:21
PROVIDERS: ATTEND Surgery
PROC: 0JPT0WZ Removal of Totally Implantable Vascular Access Device from Trunk Subcutaneous Tissue and Fascia, Open Approach (ICD-10-PCS; principal; 2020-05-11 07:30)
DX: Z45.2 Encounter for adjustment and management of vascular access device (principal); C21.0 Malignant neoplasm of anus, unspecified; Z11.59 Encounter for screening for other viral diseases; Z80.3 Family history of malignant neoplasm of breast; Z83.3 Family history of diabetes mellitus
CPT/HCPCS: 36590; 85025; 36415; 82947; 88300; J2704; J2250; J3010; J0690; J7030

== ENCOUNTER → 2021-04-09 | Day surgery (SDC) | payer OTHER ==
[~2021-04-09] MED LIST changes: -NA CHLORIDE 0.9% 250 ML ONE; +NA CHLORIDE 0.9% 500 ML ONE
[2021-04-09 09:14] VITALS: TEMP 97; BMI 37.8
[2021-04-09 14:32] VITALS: BP 127/64; O2SAT 97
[2021-04-09 15:44] LABS: Hematocrit 23.9 % (36.0-45.0)
== END ==
LOC: DS 08:12
PROVIDERS: ATTEND Internal Medicine Medical Oncology
DX: D64.81 Anemia due to antineoplastic chemotherapy (principal); C21.8 Malignant neoplasm of overlapping sites of rectum, anus and anal canal; D63.1 Anemia in chronic kidney disease
CPT/HCPCS: 36415; 36430; 85014; 85018; 86850; 86900; 86901; J7050; P9016

== ENCOUNTER 2021-10-11 07:31 | Day surgery (SDC) | payer OTHER ==
[2021-10-11] MEDS ORDERED: NA CHLORIDE 0.9% 250 ML ONE ×2 (08:12→10:15)
[2021-10-11 09:13] VITALS: BMI 32.9
[2021-10-11 13:07] VITALS: BP 97/36; TEMP 97.5; O2SAT 98
[2021-10-11 15:29] LABS: Hematocrit 28.2 % (36.0-45.0)
== END 2021-10-11 15:00 | disposition home or self-care (01) ==
LOC: DS 07:31
PROVIDERS: ATTEND Internal Medicine Medical Oncology
DX: C21.8 Malignant neoplasm of overlapping sites of rectum, anus and anal canal (principal); C77.4 Secondary and unspecified malignant neoplasm of inguinal and lower limb lymph nodes; D63.0 Anemia in neoplastic disease
CPT/HCPCS: 36415; 86900; 86850; 86901; 85018; 85014; 36430; P9016 ×2; J7050 ×2